=== PATIENT | female | born 1995 | race Caucasian/White ===

== ENCOUNTER 2019-03-05 11:45 | Emergency (ER) | payer SELFPAY ==
[2019-03-05 11:48] VITALS: BP 124/103; PULSE 119; RESP 18; TEMP 37.7; O2SAT 97; BMI 38.9
--- NOTE | 2019-03-05 12:03 | PC.NURSE ---
At bedside to collect flu swab. Patient states that this swab was already collected.
--- NOTE | 2019-03-05 12:04 | ED_ITS ---
Entered by Hellen Sanon, acting as scribe for Mar 05, 2019 11:45 HPI - General Adult General: Chief complaint: General Medical Stated complaint: Headache, n/v Time Seen by Provider: 03/05/19 11:54 Source: patient and family Mode of arrival: ambulatory Limitations: no limitations History of Present Illness: HPI narrative: 23 yo female presents with heada tye, myalgias, arthralgias, cough, n/v, fever. pt states this started yesterday. pt states nothing makes this better or worse, has not tried any OTC meds. pt was recently expose to mother in law that was Dx with flu. pt denies any other symptoms at this time. complaint: headache Onset (ago): day(s) (yesterday) Radiation: non-radiation Severity: moderate Quality: aching Pain Consistency: constant Relieving factors: none Exacerbating factors: other (cough) Associated symptoms: Reports cough, fevers/chills, headache(s), nausea and vomiting; Deny chest pain, confusion, dyspnea or rash Treatments prior to arrival: none Review of Systems Const: Reports: fever, chills, body aches, fatigue and other (headache, cough) Eyes: Denies: blurry vision or eye discharge ENMT: Denies: throat pain, nasal congestion or facial/sinus pain Card: Denies: chest pain or shortness of breath on exertion Resp: Reports: non-productive cough; Denies: shortness of breath or stridor GI: Reports: nausea and vomiting : Denies: painful urination Musc: Denies: neck pain, back pain, extremity pain or extremity swelling Skin/Breast: Denies: rash, redness or sores Neuro: Reports: headache; Denies: confusion or slurred speech Psych: Denies: anxiety or depression Endo: Denies: excessive urination or excessive thirst Jesus/Lymph: Denies: easy bruising, petechiae or enlarged lymph nodes All/Imm: Denies: hives or acute wheezing PFSH ED PFSH: Statuses (acute, chronic, etc) shown below reflect problem list status as previously entered and may not be historically accurate Social History Smoking and tobacco status: current every day smoker smokeless tobacco Physical Exam Const: COMMON NORMALS: no apparent distress, oriented x3, no limitations, healthy appearing, alert and well nourished GENERAL APPEARANCE: cooperative, comfortable, well kempt and well developed ORIENTATION/CONSCIOUSNESS: Yes awake, Yes oriented to person, Yes oriented to place and Yes oriented to time HENMT: COMMON NORMALS: normocephalic, head/scalp atraumatic, hearing grossly normal bilaterally, external ears normal, external nose normal, moist oral mucous membranes and oropharynx normal HEAD & SCALP: normocephalic and atraumatic FACE & SINUS: normal facial exam and face symmetric NOSE: external nose normal EXTERNAL EAR: Yes external ears normal and Yes external ear abnormal Eye: COMMON NORMALS: EOMs intact bilaterally and conjunctivae normal GENERAL EYE: normal appearance of both eyes ALIGNMENT: Yes alignment normal EYELID: eyelids normal CONJUNCTIVA: Yes conjunctivae normal SCLERA: sclerae normal Neck/C-Spine: COMMON NORMALS: full ROM, no lymphadenopathy, supple and no meningeal signs GENERAL: Yes normal visual inspection and Yes trachea midline CERVICAL SPINE: Yes cervical ROM normal, No pain with cervical ROM and No paracervical muscle tenderness Lymph: LYMPHATIC: no lymphadenopathy noted Chest: COMMONS NORMALS: inspection of chest normal CHEST: Yes symmetrical chest wall rise Resp: COMMON NORMALS: normal respiratory effort, no use of accessory muscles and clear to auscultation bilaterally EFFORT & INSPECTION: Yes able to speak in complete sentences, Yes symmetric chest movement and No respiratory distress AUSCULTATION: clear to auscultation bilaterally Cardio: COMMON NORMALS: regular rhythm RATE: tachycardic RHYTHM: regular rhythm PERIPHERAL PULSES: radial pulses present GI: COMMON NORMALS: normal to inspection, nondistended, normoactive bowel sounds, soft to palpation and non-tender PALPATION: Yes soft RECTAL EXAM: deferred : COMMON NORMALS: Yes no CVA tenderness BLADDER/KIDNEY EXAM: Yes no CVA tenderness Back/Pelvis: COMMON NORMALS: no CVA tenderness THORACIC SPINE/UPPER BACK: No pain with ROM LUMBAR SPINE/LOWER BACK: No pain with ROM Extremity: COMMON NORMALS: normal to inspection, full ROM, normal capillary refill and no pedal edema GENERAL: Yes normal exam except as noted Neuro: FERD COMA SCALE: GCS not evaluated COMMON NORMALS: oriented x3, moves all extremities, no focal motor deficits and no sensory deficits noted SENSORIUM/ORIENTATION: Yes alert, Yes oriented to person, Yes oriented to place and Yes oriented to time MENINGEAL SIGNS: Yes no meningeal signs SPEECH: speech normal GAIT: Yes normal gait Psych: COMMON NORMALS: mental status grossly normal, thought process normal, cooperative, affect normal and speech normal APPEARANCE: Yes grossly normal and Yes well kempt ATTITUDE: Yes calm ACTIVITY/MOTOR BEHAVIOR: Yes appropriate eye contact SPEECH: Yes normal speech THOUGHT PROCESS: normal thought process THOUGHT CONTENT: Yes normal thought content ATTENTION/CONCENTRATION: Yes attention grossly intact MEMORY/COGNITION: Yes memory grossly intact and Yes cognition grossly intact INSIGHT: insight good JUDGEMENT: judgment good Skin: COMMON NORMALS: no rashes or lesions noted, skin turgor normal and no petechiae GENERAL SKIN EXAM: no rashes or lesions noted and turgor normal RASHES: no rashes TRAUMA: no lacerations or abrasions HAIR: normal NAILS: normal Course ED course: Although the patient does not appear To feel well, she does not appear toxic. She describesFlulike symptoms and acknowledges exposure to Influenza. Regarding her headache, she does not have any signs of meningismus. She has a low-grade fever here, has not used any svmg-irr-tifqrmw medications for this..I did discuss risks versus benefits of Tamiflu. I did not recommend the medication for her at this time. Patient agrees. We will treat her symptoms today regarding her headache, discharge her home with instructions for flulike symptoms. She has been given strict return precautions. Vital Signs: Vital signs: Vital Signs Temperature 99.9 F H 03/05/19 11:48 Pulse Rate 119 H 03/05/19 11:48 Respiratory Rate 18 03/05/19 11:48 Blood Pressure 124/103 03/05/19 11:48 Pulse Oximetry 97 03/05/19 11:48 MDM - General Adult MDM Narrative: Medical decision making narrative: Differential diagnosis includes influenza, other viral illness, migraine headache, Other headache causes. Meningitis. Discharge Plan Discharge Patient Disposition: Home, Self-Care Clinical Impression: Flu-like symptoms Condition: Stable Discharge Orders: Discharge Order (Routine); Ordered 03/05/19 Ordered By: Tad Mueller Referrals: Fabricio Silvestre MD [Primary Care Provider] - Discharge Diet: Usual diet Discharge Activity: Resume usual activity Patient Instructions: Influenza (ED) Activity Restrictions/Additional Instructions: Your signs and symptoms are most likely caused by a viral illness. Viruses are not treated with antibiotics, but are best treated with rest, pain medications and therapies aimed at relieving symptoms. Viruses can cause sore throat, a runny or congested nose and sinuses, eye redness or irritation, cough, fever, fatigue and weakness. Normally viral illnesses can last from a few days to sometimes 1 to 2 weeks. Staying hydrated will help you feel better and relieve some symptoms. Sore throat can be treated with rnpc-wzk-jnxqlby medications like Tylenol or ibuprofen. Saltwater gargles can also help. Klti-kcb-qyalybt sprays or lozenges may also help relieve symptoms. Obto-hnh-ywwlpfl antihistamines or decongestants may be helpful. Check recommended ages to see if these are safe with children. Medications with Guaifenesin (like Mucinex) can help with relieving chest congestion. You must drink plenty of water with these medications in order for them to be helpful. Nasal sprays like Afrin can be useful for temporary relief of nasal congestion but only use for 2-3 days as directed. Overuse actually makes congestion worse. I actually recommend only using these at night to help [him/her] breathe better and get a good night???s sleep. Nasal washes like the Neti-pot can also help clear nasal congestion. Medicines that contain dextromethorphan can be used to help with cough in teenagers and adults. Xozd-rdi-btizmnk cough and cold medications should not be used in children under 6 years old. Check with pharmacist or with the package recommendations regarding children from 6-12 years old. Bacterial illnesses can sometimes follow a viral illness. So, if your symptoms have gotten better over several days and then suddenly worsen, it may be beneficial to follow-up with your primary care provider or seek medical care if you think your symptoms are worsening. Stand Alone Forms: Work/School Release Coding Level of Care Code ED Scow Derrick Operator for Chg Fwd Exam Problem Focused The documentation recorded by the Fab lou Bridget Annette, accurately reflects the service I personally performed and the decisions made by me, Tad Mueller MD Mar 05, 2019 11:45
[2019-03-05] MEDS: ibuprofen 600 mg Tablet PO (12:21)
[2019-03-05] MEDS: diphenhydrAMINE 50 mg/mL SDV 1mL IM (12:21)
[2019-03-05] MEDS: metoclopramide 5 mg/mL SDV 2 mL 10 MG IM (12:22)
[2019-03-05 12:28] LABS: Influenza A by IFA Negative (Negative); Influenza B by IFA Negative (Negative)
== END 2019-03-05 12:29 | disposition home or self-care (01) ==
PROVIDERS: Emergency Provider Emergency Medicine; PCP Family Medicine
DX: R51 Headache (principal); R11.2 Nausea with vomiting, unspecified; F17.210 Nicotine dependence, cigarettes, uncomplicated
CPT/HCPCS: 87804; 96372; 99281; J1200; J2765

== ENCOUNTER 2019-04-20 00:46 | Emergency (ER) | payer SELFPAY ==
--- NOTE | 2019-04-20 00:50 | W.ED.DENTAL ---
HPI - Dental/Oral General: Chief complaint: Dental/Oral Stated complaint: DENTAL PAIN Time Seen by Provider: 04/20/19 00:50 Source: patient Mode of arrival: ambulatory Limitations: no limitations History of Present Illness: HPI Narrative: Patient is a 24-year-old female who presents to ED today with complaints of left upper dental pain. Patient states she has had cracked teeth to that affected area for the past 3 months that have caused her intermittent pain however over the past few days she states pain has become unbearable. She has not noticed any swelling to her face or jaw. No fevers. She has tried OTC Tylenol, Ibuprofen, Orajel without relief Complaint: tooth pain Teeth map: 1. cracked teeth Onset (ago): month(s) Duration: intermittent Severity: moderate Relieving factors: nothing Associated symptoms: Denies fever(s) or painful swallowing Treatment prior to arrival: topical analgesic and oral analgesic Review of Systems Const: Denies: fever, chills, body aches, change in appetite, change in weight or fatigue Eyes: Denies: change in vision or blurry vision ENMT: Reports: dental pain; Denies: throat pain, enlarged tonsils, painful swallowing, swelling of lips/tongue, oral sores/lesions, ear discharge, nasal congestion or facial/sinus pain Card: Denies: chest pain Resp: Denies: shortness of breath GI: Denies: nausea or vomiting Skin/Breast: Denies: rash Neuro: Denies: headache [facility] ED PFSH: Social History Smoking and tobacco status: current every day smoker smokeless tobacco Physical Exam Const: COMMON NORMALS: no apparent distress, oriented x3, no limitations, alert and well nourished NUTRITIONAL APPEARANCE: obese HENMT: COMMON NORMALS: normocephalic, head/scalp atraumatic, external ears normal, EAC's normal, TM's normal bilaterally and external nose normal HEAD & SCALP: normal to inspection, normocephalic and atraumatic FACE & SINUS: normal facial exam NOSE: external nose normal EXTERNAL EAR: Yes external ears normal EXTERNAL AUDITORY CANAL: EAC's normal TYMPANIC MEMBRANE: TM's normal bilaterally MOUTH: oral and palatal mucosa normal, lip normal, tongue normal and other (cracked L upper teeth; no obvious abscess formation) THROAT: posterior oropharynx normal, tonsils normal and uvula midline Neuro: COMMON NORMALS: oriented x3 SENSORIUM/ORIENTATION: Yes alert Course Vital Signs: Vital signs: Vital Signs Temperature 98 F 04/20/19 00:51 Pulse Rate 90 04/20/19 00:51 Respiratory Rate 18 04/20/19 00:51 Blood Pressure 141/95 04/20/19 00:51 Pulse Oximetry 99 04/20/19 00:51 Discharge Plan Discharge Patient Disposition: Home, Self-Care Clinical Impression: Dental caries Broken teeth Qualifiers: Encounter type: initial encounter Fracture type: closed Qualified Code(s): S02.5XXA - Fracture of tooth (traumatic), initial encounter for closed fracture Condition: Stable Prescriptions: New penicillin V potassium 500 mg tablet 500 mg PO Q8H 7 Days Qty: 21 RF: 0 tramadol 50 mg tablet 50 mg PO TID PRN (Reason: pain) Qty: 14 RF: 0 Discharge Orders: Discharge Order (Routine); Ordered 04/20/19 Ordered By: Clotilde Cisneros Referrals: Fabricio Silvestre MD [Primary Care Provider] - Discharge Diet: Advance as tolerated Patient Instructions: Dental Caries (ED), Toothache (ED) Activity Restrictions/Additional Instructions: You need to follow up with a dentist as soon as possible. Coding Level of Care Code ED Blanking Machine Operator for Sangita Jacobo
[2019-04-20 00:51] VITALS: BP 141/95; PULSE 90; RESP 18; TEMP 36.6; O2SAT 99; BMI 38.9
[2019-04-20] MEDS: TRAMadol 50 mg Tablet PO (01:04)
[2019-04-20] MEDS: ketorolac 60 mg/2 mL INJ IM (01:06)
[2019-04-20 01:31] VITALS: BP 133/87; PULSE 84; RESP 16; O2SAT 100
== END 2019-04-20 01:32 | disposition home or self-care (01) ==
LOC: ER 01:11
PROVIDERS: Emergency Provider Physician Assistant; PCP Family Medicine
DX: K02.9 Dental caries, unspecified (principal); S02.5XXA Fracture of tooth (traumatic), initial encounter for closed fracture; F17.290 Nicotine dependence, other tobacco product, uncomplicated; X58.XXXA Exposure to other specified factors, initial encounter
CPT/HCPCS: 12345; 96372; 99281; 99283; J1885

== ENCOUNTER 2019-06-03 22:13 | Emergency (ER) | payer SELFPAY ==
[2019-06-03 22:21] VITALS: BP 138/91; PULSE 70; RESP 17; TEMP 35.6; O2SAT 99; BMI 38.0
--- NOTE | 2019-06-03 22:37 | ED_ITS ---
Documented by User: Jesus Alberto Felder DO 06/05/19 07:10 HPI - Headache General: Chief Complaint: Headache Stated Complaint: headache Time Seen by Provider: 06/03/19 22:37 History of Present Illness: HPI Narrative: 24-year-old female presents to the emergency room with complaint of headache that began around 3-4 this afternoon she rates the pain at a 7 out of 10 she did not have any aura with his headache she has had migraines on and off for a year and usually gets about 1 every 2 to 3 months it becomes debilitating enough to go to the emergency room. She did take a tramadol at home with no real significant relief. She does not describe this headache as being thunderclap or the worst of her life time. She does state it gives her some nausea and photophobia and has caused a little blurry vision. She has no trauma to the head she is not on any blood thinners at all. She not previously been on any long-term headache prophylaxis medications. Associated symptoms: Deny chest pain, fever(s), malaise, nausea, rash or vomiting Review of Systems Const: Denies: fever, chills, body aches, change in appetite, fatigue or malaise ENMT: Denies: throat pain, ear pain, nasal discharge or nasal congestion Card: Denies: chest pain, edema, shortness of breath on exertion or shortness of breath when lying down Resp: Denies: shortness of breath, productive cough or non-productive cough GI: Denies: abdominal pain, nausea, vomiting, vomiting blood, coffee grounds in vomit, diarrhea, constipation, bloating, blood in stool or black tarry stool : Denies: flank pain, difficulty urinating, painful urination, urinary frequency or urinary urgency Skin/Breast: Denies: rash or itching PFSH ED PFSH: Medical History (Updated 06/03/19 @ 23:30 by Stanley Duke DO) Acute bacterial pharyngitis Depression Migraines Pain, dental Scoliosis Surgical History History of surgical amputation of finger of left hand S/P tonsillectomy Family History Father Diabetes Cancer Grandfather Diabetes Cancer Brother Hypertension Mother Cancer Social History Smoking and tobacco status: current every day smoker cigarettes Packs smoked per day: 0.5 and smokeless tobacco Smokeless tobacco user: chewing tobacco Smokeless tobacco details: very rare Alcohol intake: current Alcohol intake frequency: holidays/special occasions only History of recent travel: No Female Reproductive History: Date of last menstrual period: 01/16/19 Physical Exam Const: COMMON NORMALS: no apparent distress GENERAL APPEARANCE: cooperative and comfortable ORIENTATION/CONSCIOUSNESS: Yes awake, Yes oriented to person, Yes oriented to place and Yes oriented to time HENMT: COMMON NORMALS: normocephalic, head/scalp atraumatic, hearing grossly normal bilaterally, external ears normal, EAC's normal, TM's normal bilaterally, nasal mucous membranes and turbinates normal, moist oral mucous membranes and oropharynx normal HEAD & SCALP: normocephalic and atraumatic NOSE: nasal mucous membranes and turbinates normal EXTERNAL EAR: Yes external ears normal EXTERNAL AUDITORY CANAL: EAC's normal TYMPANIC MEMBRANE: TM's normal bilaterally Eye: COMMON NORMALS: PERRL, EOMs intact bilaterally, conjunctivae normal and no scleral icterus CONJUNCTIVA: Yes conjunctivae normal PUPIL: Yes PERRL Neck/C-Spine: COMMON NORMALS: full ROM, no lymphadenopathy, supple and no JVD Lymph: LYMPHATIC: no lymphadenopathy noted and no lymphedema noted Resp: COMMON NORMALS: normal respiratory effort, no retractions, no use of accessory muscles and clear to auscultation bilaterally AUSCULTATION: clear to auscultation bilaterally Cardio: COMMON NORMALS: no JVD, regular rate, regular rhythm and no murmurs RATE: regular rate RHYTHM: regular rhythm GI: COMMON NORMALS: soft to palpation and no hepatosplenomegaly AUSCULTATION: Yes normoactive bowel sounds PALPATION: Yes soft, No tender, No guarding and Yes no hepatosplenomegaly Extremity: COMMON NORMALS: normal to inspection, normal capillary refill, no clubbing, cyanosis or edema, no calf tenderness and no pedal edema Neuro: SENSORIUM/ORIENTATION: Yes oriented to person, Yes oriented to place and Yes oriented to time Skin: COMMON NORMALS: no rashes or lesions noted GENERAL SKIN EXAM: no rashes or lesions noted Course Vital Signs: Vital signs: Vital Signs Temperature 96.0 F L 06/03/19 22:21 Pulse Rate 77 06/04/19 00:44 Respiratory Rate 18 06/04/19 00:44 Blood Pressure 123/72 06/04/19 00:44 Pulse Oximetry 98 06/04/19 00:44 MDM - Headache MDM Narrative: Medical decision making narrative: Patient initially seen by myself and started on medications for relief of migraine. Care turned over to Dr. Duke at end of my shift. Lab Data: Labs: Lab Results 06/03/19 06/03/19 Range/Units 22:53 22:53 WBC 10.3 H (4.0-10.0) 10^3/ uL RBC 5.43 H (4.1-5.3) 10^6/u L Hgb 16.2 H (11.5-15.3) g/dL Hct 48.7 H (37.0-47.0) % MCV 89.7 (81-99) fL MCH 29.8 (28.0-34.0) pg MCHC 33.3 (30.0-36.0) g/dL RDW 13.2 (12.1-15.1) % Plt Count 343 (130-400) 10^3/c mm MPV 9.9 (7.4-10.4) fL Neut % (Auto) 51.4 % Lymph % (Auto) 35.9 % Plumas % (Auto) 7.9 % Eos % (Auto) 3.6 % Baso % (Auto) 1.1 % Neut # (Auto) 5.3 (1.8-7.7) 10^3/u L Lymph # (Auto) 3.7 (0.8-4.8) 10^3/u L [place] # (Auto) 0.8 (0.2-0.9) 10^3/u L Eos # (Auto) 0.4 (0.0-0.8) 10^3/u L Baso # (Auto) 0.1 (0.0-0.1) 10^3/u L Nucleated RBC % (a uto) 0 % Nucleated RBCs # 0.0 /100WBC Sodium 140 (136-145) mmol/L Potassium 4.1 (3.5-5.1) mmol/L Chloride 101 (98-107) mmol/L Carbon Dioxide 27 (22-29) mmol/L Anion Gap 16.1 (5-19) BUN 7 (6-20) mg/dL Creatinine 0.7 (0.5-0.9) mg/dL GFR Calculation 104.6 (90-130) mL/min Glucose 102 (65-115) mg/dL Calculated Osmolal ity 286 (285-295) mOsm/k g Calcium 10.1 (8.5-10.5) mg/dL Discharge Plan Discharge Patient Disposition: Home, Self-Care Clinical Impression: Headache Qualifiers: Headache type: unspecified Headache chronicity pattern: acute headache Intractability: not intractable Qualified Code(s): R51 - Headache Condition: Stable Prescriptions: No Action ibuprofen 800 mg tablet 800 mg PO Q8H PRN (Reason: dental pain) Qty: 90 RF: 0 HYDROCODONE capsule PO RF: 0 Adult Probiotic 3 billion cell capsule 3,000 mmu cells PO DAILY Qty: 24 RF: 0 Discharge Orders: Discharge Order (Routine); Ordered 06/03/19 Ordered By: Stanley Duke Referrals: Tammie Montana FNP [Primary Care Provider] - 4-7 days Discharge Diet: Advance as tolerated Discharge Activity: Increase activity as tolerated Patient Instructions: Acute Headache (ED) Activity Restrictions/Additional Instructions: Return for fever greater than 100, mental status changes, weakness, vomiting liquids or medications, other concerning symptoms. Stand Alone Forms: Work/School Release Discharge Date/Time: 06/04/19 00:46 Coding Level of Care Code ED D[employer] Worker for Chg Fwd Exam Comprehensive Documented by User: Stanley Duke DO 06/04/19 03:50 HPI - Headache General: Chief Complaint: Headache Stated Complaint: headache Time Seen by Provider: 06/03/19 22:37 PFSH ED PFSH: Medical History (Updated 06/03/19 @ 23:30 by Stanley Duke DO) Acute bacterial pharyngitis Depression Migraines Pain, dental Scoliosis Surgical History History of surgical amputation of finger of left hand S/P tonsillectomy Family History Father Diabetes Cancer Grandfather Diabetes Cancer Brother Hypertension Mother Cancer Social History Smoking and tobacco status: current every day smoker cigarettes Packs smoked per day: 0.5 and smokeless tobacco Smokeless tobacco user: chewing tobacco Smokeless tobacco details: very rare Alcohol intake: current Alcohol intake frequency: holidays/special occasions only History of recent travel: No Course Vital Signs: Vital signs: Vital Signs Temperature 96.0 F L 06/03/19 22:21 Pulse Rate 77 06/04/19 00:44 Respiratory Rate 18 06/04/19 00:44 Blood Pressure 123/72 06/04/19 00:44 Pulse Oximetry 98 06/04/19 00:44 MDM - Headache MDM Narrative: Medical decision making narrative: 24-year-old female, with decently frequent migraine type headaches that landed her in the emergency department. She was originally seen by Dr. Reno. Her headache is improved after a migraine cocktail. She is having some pain. A dose of fentanyl was ordered. She has no focal neurologic deficits. Her headache is similar to previous headaches. she will be allowed discharge Lab Data: Labs: Lab Results 06/03/19 06/03/19 Range/Units 22:53 22:53 WBC 10.3 H (4.0-10.0) 10^3/ uL RBC 5.43 H (4.1-5.3) 10^6/u L Hgb 16.2 H (11.5-15.3) g/dL Hct 48.7 H (37.0-47.0) % MCV 89.7 (81-99) fL MCH 29.8 (28.0-34.0) pg MCHC 33.3 (30.0-36.0) g/dL RDW 13.2 (12.1-15.1) % Plt Count 343 (130-400) 10^3/c mm MPV 9.9 (7.4-10.4) fL Neut % (Auto) 51.4 % Lymph % (Auto) 35.9 % [place] % (Auto) 7.9 % Eos % (Auto) 3.6 % Baso % (Auto) 1.1 % Neut # (Auto) 5.3 (1.8-7.7) 10^3/u L Lymph # (Auto) 3.7 (0.8-4.8) 10^3/u L [place] # (Auto) 0.8 (0.2-0.9) 10^3/u L Eos # (Auto) 0.4 (0.0-0.8) 10^3/u L Baso # (Auto) 0.1 (0.0-0.1) 10^3/u L Nucleated RBC % (a uto) 0 % Nucleated RBCs # 0.0 /100WBC Sodium 140 (136-145) mmol/L Potassium 4.1 (3.5-5.1) mmol/L Chloride 101 (98-107) mmol/L Carbon Dioxide 27 (22-29) mmol/L Anion Gap 16.1 (5-19) BUN 7 (6-20) mg/dL Creatinine 0.7 (0.5-0.9) mg/dL GFR Calculation 104.6 (90-130) mL/min Glucose 102 (65-115) mg/dL Calculated Osmolal ity 286 (285-295) mOsm/k g Calcium 10.1 (8.5-10.5) mg/dL Discharge Plan Discharge Patient Disposition: Home, Self-Care Clinical Impression: Headache Qualifiers: Headache type: unspecified Headache chronicity pattern: acute headache Intractability: not intractable Qualified Code(s): R51 - Headache Condition: Stable Prescriptions: No Action ibuprofen 800 mg tablet 800 mg PO Q8H PRN (Reason: dental pain) Qty: 90 RF: 0 HYDROCODONE capsule PO RF: 0 Adult Probiotic 3 billion cell capsule 3,000 mmu cells PO DAILY Qty: 24 RF: 0 Discharge Orders: Discharge Order (Routine); Ordered 06/03/19 Ordered By: Stanley Duke Referrals: Tammie Montana FNP [Primary Care Provider] - 4-7 days Discharge Diet: Advance as tolerated Discharge Activity: Increase activity as tolerated Patient Instructions: Acute Headache (ED) Activity Restrictions/Additional Instructions: Return for fever greater than 100, mental status changes, weakness, vomiting liquids or medications, other concerning symptoms. Stand Alone Forms: Work/School Release Discharge Date/Time: 06/04/19 00:46 Coding Level of Care Code ED D[employer] Worker for Chg Fwd Exam Comprehensive
[2019-06-03 22:59] VITALS: BP 123/88; PULSE 80; RESP 16; O2SAT 98
[2019-06-03 22:59] LABS: Basophils # 0.1 10^3/uL (0.0-0.1); Basophils % 1.1 %; Eosinophils # 0.4 10^3/uL (0.0-0.8); Eosinophils % 3.6 %; Hematocrit 48.7 % (37.0-47.0); Hemoglobin 16.2 g/dL (11.5-15.3); Lymphocytes # 3.7 10^3/uL (0.8-4.8); Lymphocytes % 35.9 %; Mean Corpuscular HGB Conc 33.3 g/dL (30.0-36.0); Mean Corpuscular Hemoglobin 29.8 pg (28.0-34.0); Mean Corpuscular Volume 89.7 fL (81-99); Mean Platelet Volume 9.9 fL (7.4-10.4); Monocytes # 0.8 10^3/uL (0.2-0.9); Monocytes % 7.9 %; Neutrophils # 5.3 10^3/uL (1.8-7.7); Neutrophils % 51.4 %; Nucleated Red Blood Cells % 0 %; Platelet Count 343 10^3/cmm (130-400); Red Blood Count 5.43 10^6/uL (4.1-5.3); Red Cell Distribution Width 13.2 % (12.1-15.1); White Blood Count 10.3 10^3/uL (4.0-10.0)
[2019-06-03 23:18] LABS: Anion Gap 16.1 (5-19); Blood Urea Nitrogen 7 mg/dL (6-20); Calcium 10.1 mg/dL (8.5-10.5); Carbon Dioxide 27 mmol/L (22-29); Chloride 101 mmol/L (98-107); Glomerular Filtration Rate 104.6 mL/min (90-130); Glucose 102 mg/dL (65-115); Osmolality Calculated 286 mOsm/kg (285-295); Potassium 4.1 mmol/L (3.5-5.1); Sodium 140 mmol/L (136-145)
[2019-06-03] MEDS: ketorolac 30 mg/mL INJ IVP (23:22)
[2019-06-03] MEDS: metoclopramide 5 mg/mL SDV 2 mL 10 MG IVP (23:23)
[2019-06-03] MEDS: sodium chlor 0.9% + KCl 20 mEq 20 MEQ/1,000 ML BAG 125 MEQ IV (23:26)
[2019-06-03] MEDS: valproic acid inj 500 MG in sodium chloride 0.9% 50 ML 55 MG IV (23:28)
[2019-06-03 23:35] VITALS: BP 123/88; PULSE 62; RESP 16; O2SAT 97
[2019-06-04 00:09] VITALS: BP 124/76; PULSE 81; RESP 16; O2SAT 99
[2019-06-04 00:44] VITALS: BP 123/72; PULSE 77; RESP 18; O2SAT 98
== END 2019-06-04 00:46 | disposition home or self-care (01) ==
PROVIDERS: Family Medicine; Emergency Provider Emergency Medicine; PCP Nurse Practitioner
DX: R51 Headache (principal); F17.210 Nicotine dependence, cigarettes, uncomplicated
CPT/HCPCS: 12345; 80048; 85025; 96365; 96375; 99283; 99284; J1885; J2765

== ENCOUNTER → 2019-06-18 16:59 | Outpatient (BNVA) | payer SELFPAY | PROVIDERS: PCP Nurse Practitioner; Visit Provider Nurse Practitioner Family | DX: J02.9 Acute pharyngitis, unspecified (principal); J06.9 Acute upper respiratory infection, unspecified | CPT/HCPCS: 87071; 87880 ==

== ENCOUNTER 2019-10-06 00:05 | Emergency (ER) | payer SELFPAY ==
[2019-10-06 00:09] VITALS: BP 129/89; PULSE 87; RESP 18; TEMP 35.7; O2SAT 99; BMI 37.2
--- NOTE | 2019-10-06 00:21 | ED_ITS ---
HPI - Headache General: Chief Complaint: Headache Stated Complaint: migrane Time Seen by Provider: 10/06/19 00:14 History of Present Illness: HPI Narrative: Patient is a 24-year-old female comes to the ED with a migraine. Patient has a past medical history of migraines. Patient says she started having a headache earlier today that has since progressed into a migraine. She has photophobia and nausea at home with the headache. She describes the pain as aching and is located retro-orbital on both right and left eyes. He currently rates the migraine a 5 out of 10. She states that this migraine is similar to past migraines. She denies any vision changes or aura. She is taken Tylenol today and it has not provided any relief. Patient says she is currently on her period. Associated symptoms: Reports nausea and photophobia; Deny chest pain, fever(s), rash or vomiting Review of Systems Const: Denies: fever(s), chills or fatigue Eyes: Reports: photophobia; Denies: change in vision or eye discomfort ENMT: Denies: throat pain, odynophagia, nasal discharge or nasal congestion Card: Denies: chest pain, palpitations, edema, swelling of feet/ankles, dyspnea on exertion or orthopnea Resp: Denies: dyspnea, productive cough or non-productive cough GI: Reports: nausea; Denies: abdominal pain, vomiting, diarrhea, constipation or hematochezia : Denies: flank pain, dysuria or hematuria Musc: Denies: neck pain, back pain or extremity swelling Skin/Breast: Denies: rash or new lesions Neuro: Reports: headache(s); Denies: numbness in extremities or weakness in extremities PFS ED PFSH: Medical History Acute bacterial pharyngitis Depression Migraines Pain, dental Scoliosis Surgical History History of surgical amputation of finger of left hand S/P tonsillectomy Family History Father Diabetes Cancer Grandfather Diabetes Cancer Brother Hypertension Mother Cancer Social History Smoking and tobacco status: current every day smoker cigarettes Packs smoked per day: 0.5 and smokeless tobacco Smokeless tobacco user: chewing tobacco Smokeless tobacco details: very rare Alcohol intake: current Alcohol intake frequency: holidays/special occasions only History of recent travel: No Female Reproductive History: Date of last menstrual period: 09/16/19 Physical Exam Const: COMMON NORMALS: no acute distress, patient oriented x3, healthy appearing and alert GENERAL APPEARANCE: cooperative and comfortable HENMT: COMMON NORMALS: normocephalic HEAD & SCALP: normocephalic MOUTH: Normal oral and palatal mucosa present THROAT: posterior oropharynx normal and uvula midline Eye: COMMON NORMALS: Equal, round and reactive pupils present, EOMs intact bilaterally, conjunctivae normal and normal visual castillo by confrontation CONJUNCTIVA: Yes conjunctivae normal PUPIL: Yes Equal, round and reactive pupils present DIRECT OPHTHALMOSCOPY: Yes photophobia Neck/C-Spine: COMMON NORMALS: supple GENERAL: Yes normal visual inspection Resp: COMMON NORMALS: normal respiratory effort, No retractions, No use of accessory muscles and clear to auscultation bilaterally AUSCULTATION: clear to auscultation bilaterally Cardio: COMMON NORMALS: regular rate, regular rhythm, S1 normal heart sound present, S2 normal heart sound present, No gallops present (Cardio), No clicks present (Cardio), No murmurs present (Cardio) and Peripheral pulses 2+ throughout RATE: regular rate RHYTHM: regular rhythm HEART SOUNDS: S1 normal heart sound present and S2 normal heart sound present PERIPHERAL PULSES: Peripheral pulses 2+ throughout GI: COMMON NORMALS: Normal to inspection, nondistended, normoactive bowel sounds present, Soft to palpation, non-tender and no masses PALPATION: Yes Soft to palpation : COMMON NORMALS: Yes no CVA tenderness BLADDER/KIDNEY EXAM: Yes no CVA tenderness Back/Pelvis: COMMON NORMALS: no CVA tenderness Extremity: COMMON NORMALS: normal to inspection and no pedal edema Neuro: COMMON NORMALS: patient oriented x3, CN's II-XII intact bilaterally, moves all extremities, no focal motor deficits and no sensory deficits noted SENSORIUM/ORIENTATION: Yes alert COORDINATION/BALANCE: [id number] test normal GAIT: Yes Normal gait present SENSORY EXAM: Yes extremities (intact) MOTOR EXAM: 5/5 motor strength present throughout COORDINATION: [id number] test normal Skin: COMMON NORMALS: no rashes or lesions noted GENERAL SKIN EXAM: no rashes or lesions noted and dry skin Course Reevaluation(s): Reevaluation #1: After getting migraine medications patient says her migraine has improved greatly and she is ready to go home and rest. Time: 01:00 Vital Signs: Vital signs: Vital Signs Temperature 96.2 F L 10/06/19 00:09 Pulse Rate 78 10/06/19 00:43 Respiratory Rate 18 10/06/19 00:43 Blood Pressure 114/66 10/06/19 00:43 Pulse Oximetry 99 10/06/19 00:43 MDM - Headache MDM Narrative: Medical decision making narrative: Patient is a 24-year-old female comes to the ED with a migraine. She has a past medical history of migraines. She is experiencing nausea retro-orbital head pain and photophobia. Neuro exam was normal. Patient was given migraine treatment cocktail of IV fluids, Reglan, Toradol, Decadron and her migraine improved. Patient was discharged and told to follow-up with PCP in 7 to 10 days for reevaluation. Ret urn to ED precautions given. Patient understood and agreed with plan. Discharge Plan Discharge Patient Disposition: Home Clinical Impression: Migraines Qualifiers: Migraine type: without aura Status migrainosus presence: without status migrainosus Intractability: not intractable Qualified Code(s): G43.009 - Migraine without aura, not intractable, without status migrainosus Condition: Stable Prescriptions: No Action azithromycin 250 mg tablet See Rx Instructions PO .COMPLEX 5 Days Qty: 6 RF: 0 prednisone 20 mg tablet 40 mg PO DAILY 5 Days Qty: 10 RF: 0 Discharge Orders: Discharge Order (Routine); Ordered 10/06/19 Ordered By: Kenrick Davalos Discharge Diet: Regular Discharge Activity: Resume usual activity Patient Instructions: Migraine Headache (ED) Activity Restrictions/Additional Instructions: Follow-up with medical provider as directed in 7-10 days. Take [id number] ibuprofen or Tylenol for any reoccurring headaches. Return to the ER or your medical provider if condition worsens. Please read and understand discharge instructions. If any questions, please ask. 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
[2019-10-06] MEDS: ketorolac 30 mg/mL INJ IVP (00:26)
[2019-10-06] MEDS: metoclopramide 5 mg/mL SDV 2 mL 10 MG IVP (00:29)
[2019-10-06] MEDS: dexamethasone 10 mg/mL INJ IVP (00:33)
[2019-10-06] MEDS: sodium chloride 0.9% 500 ML IV (00:35)
[2019-10-06 00:43] VITALS: BP 114/66; PULSE 78; RESP 18; O2SAT 99
== END 2019-10-06 01:13 | disposition home or self-care (01) ==
PROVIDERS: Emergency Provider Physician Assistant
DX: G43.009 Migraine without aura, not intractable, without status migrainosus (principal); F17.210 Nicotine dependence, cigarettes, uncomplicated
CPT/HCPCS: 12345; 96361; 96374; 96375; 99283; J1100; J1885; J2765; J7040

== ENCOUNTER 2019-10-15 19:20 | Emergency (ER) | payer SELFPAY ==
[2019-10-15 19:25] VITALS: BP 127/94; PULSE 90; RESP 17; TEMP 36.4; O2SAT 98; BMI 38.0
--- NOTE | 2019-10-15 19:50 | ED_ITS ---
HPI - Dental/Oral General: Chief complaint: Dental/Oral Stated complaint: possible tooth infection Time Seen by Provider: 10/15/19 19:49 Source: patient Mode of arrival: ambulatory Limitations: no limitations History of Present Illness: HPI Narrative: Patient is a 24-year-old female who presents to ED today with a complaint of right lower dental pain that she has had over the past several days. Patient tells me she has tried to get into a dentist but does not have insurance. She has noticed some mild facial swelling. She has no trouble swallowing. No fevers. MD Complaint: tooth pain Teeth map: 1. previous filling; no swelling noted; no abscess Onset (ago): day(s) Duration: constant Severity: moderate Relieving factors: nothing Context: history of dental caries and poor dental care Associated symptoms: Reports no associated symptoms; Denies ear or mastoid pain, fever(s) or odynophagia Review of Systems Const: Denies: fever(s) or chills Eyes: Denies: change in vision, blurry vision, photophobia, floaters or seeing flashes ENMT: Reports: dental pain; Denies: throat pain, uvular edema, enlarged tonsils, odynophagia, hoarseness, swelling of lips/tongue, oral sores, bleeding gums, ear or mastoid pain, ear discharge, change in hearing, nasal congestion, epistaxis or post nasal drip GI: Denies: nausea or vomiting Musc: Denies: neck pain Skin/Breast: Denies: rash Neuro: Denies: headache(s) [facility] ED PFSH: Medical History (Updated 10/15/19 @ 20:15 by GIOVANI Wolfe) Acute bacterial pharyngitis Depression Migraines Pain, dental Scoliosis Surgical History History of surgical amputation of finger of left hand S/P tonsillectomy Family History Father Diabetes Cancer Grandfather Diabetes Cancer Brother Hypertension Mother Cancer Social History Smoking and tobacco status: current every day smoker cigarettes Packs smoked per day: 0.5 and smokeless tobacco Smokeless tobacco user: chewing tobacco Smokeless tobacco details: very rare Alcohol intake: current Alcohol intake frequency: holidays/special occasions only History of recent travel: No Female Reproductive History: Date of last menstrual period: 09/16/19 Physical Exam Const: COMMON NORMALS: no acute distress, patient oriented x3, no limitations and alert HENMT: COMMON NORMALS: normocephalic, atraumatic, hearing grossly normal bilaterally, external ears normal, EAC's normal, TM's normal bilaterally, Normal external nose present, Normal nasal mucous membranes and turbinates present, moist oral mucous membranes, oropharynx normal and gingiva normal HEAD & SCALP: normal to inspection, normocephalic and atraumatic FACE & SINUS: normal facial exam and sinuses nontender NOSE: Normal external nose present and Normal nasal mucous membranes and turbinates present EXTERNAL EAR: Yes external ears normal, Yes mastoids normal and Yes no periauricular adenopathy EXTERNAL AUDITORY CANAL: EAC's normal TYMPANIC MEMBRANE: TM's normal bilaterally MOUTH: Normal oral and palatal mucosa present, lip normal and tongue normal TEETH & GINGIVA: Yes poor dentition and Yes other (pain to R molar; no swelling/abscess noted) THROAT: posterior oropharynx normal, tonsils normal and uvula midline; no uvular edema Neuro: COMMON NORMALS: patient oriented x3 SENSORIUM/ORIENTATION: Yes alert Procedures Nerve Block Nerve Block 1: Time out performed: No Local Anesthetic: lidocaine 1%, bupivacaine 0.5% and with epi Amount of anesthesia used (mL): 2.0 Side: right Intraoral Nerve Block: inferior alveolar Procedure Successful: Yes Patient Tolerated Procedure: well Complications: none Course Vital Signs: Vital signs: Vital Signs Temperature 97.6 F 10/15/19 19:25 Pulse Rate 90 10/15/19 19:25 Respiratory Rate 17 10/15/19 19:25 Blood Pressure 127/94 10/15/19 19:25 Pulse Oximetry 98 10/15/19 19:25 MDM - Dental/Oral MDM Narrative: Medical decision making narrative: pt with relief after dental block; gave dental resources and spoke to her about [facility] for follow[facility] Discharge Plan Discharge Patient Disposition: Home Clinical Impression: Pain, dental Condition: Stable Prescriptions: New penicillin V potassium 500 mg tablet 500 mg PO Q8H 7 Days Qty: 21 RF: 0 tramadol 50 mg tablet 50 mg PO Q6H PRN (Reason: pain) Qty: 10 RF: 0 No Action azithromycin 250 mg tablet See Rx Instructions PO .COMPLEX 5 Days Qty: 6 RF: 0 prednisone 20 mg tablet 40 mg PO DAILY 5 Days Qty: 10 RF: 0 Discharge Orders: Discharge Order (Routine); Ordered 10/15/19 Ordered By: Clotilde Cisneros Patient Instructions: Lidocaine/Epinephrine (Injection), Dental Caries (ED), Toothache (ED) Activity Restrictions/Additional Instructions: Please follow up with a dentist as soon as possible. 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
[2019-10-15 21:03] VITALS: BP 138/98; PULSE 70; RESP 14; O2SAT 98
== END 2019-10-15 21:04 | disposition home or self-care (01) ==
PROVIDERS: Emergency Provider Physician Assistant
DX: K08.89 Other specified disorders of teeth and supporting structures (principal); F17.210 Nicotine dependence, cigarettes, uncomplicated
CPT/HCPCS: 12345; 99281

== ENCOUNTER 2019-11-13 01:09 | Emergency (ER) | payer OTHER, SELFPAY ==
[2019-11-13 01:20] VITALS: BP 144/103; PULSE 73; RESP 18; TEMP 36.5; O2SAT 98; BMI 38.0
--- NOTE | 2019-11-13 01:23 | ED_ITS ---
HPI - Dental/Oral General: Chief complaint: Dental/Oral Stated complaint: oral pain Time Seen by Provider: 11/13/19 01:23 History of Present Illness: HPI Narrative: Patient is a 24-year-old female comes to the ED with dental pain. Patient has been dealing with this dental pain for the past 2 months. She had an appointment set up with a dentist, but it got delayed due to COVID-19. He does have another appointment with dentist set up in the next 2 weeks. Dental pain is on right lower side of jaw. She currently rates the pain a 6 out of 10. Associated symptoms: Denies fever(s) or odynophagia Review of Systems Const: Denies: fever(s), chills or fatigue Eyes: Denies: change in vision or eye discomfort ENMT: Reports: dental pain; Denies: throat pain, odynophagia, nasal discharge or nasal congestion Card: Denies: chest pain, palpitations, edema, swelling of feet/ankles, dyspnea on exertion or orthopnea Resp: Denies: dyspnea, productive cough or non-productive cough GI: Denies: abdominal pain, nausea, vomiting, diarrhea, constipation or hematochezia : Denies: flank pain, dysuria or hematuria Musc: Denies: neck pain, back pain or extremity swelling Skin/Breast: Denies: rash or new lesions Neuro: Denies: headache(s), numbness in extremities or weakness in extremities PFSH ED PFSH: Medical History Acute bacterial pharyngitis Depression Migraines Pain, dental Scoliosis Surgical History History of surgical amputation of finger of left hand S/P tonsillectomy Family History Father Diabetes Cancer Grandfather Diabetes Cancer Brother Hypertension Mother Cancer Social History Smoking and tobacco status: current every day smoker cigarettes Packs smoked per day: 0.5 and smokeless tobacco Smokeless tobacco user: chewing tobacco Smokeless tobacco details: very rare Alcohol intake: current Alcohol intake frequency: holidays/special occasions only History of recent travel: No Female Reproductive History: Date of last menstrual period: 09/16/19 Physical Exam Const: COMMON NORMALS: no acute distress, patient oriented x3, healthy appearing and alert GENERAL APPEARANCE: cooperative and comfortable HENMT: COMMON NORMALS: normocephalic HEAD & SCALP: normocephalic MOUTH: Normal oral and palatal mucosa present TEETH & GINGIVA: Yes caries and Yes gingiva abnormal edematous and diffusely erythematous THROAT: posterior oropharynx normal and uvula midline Neck/C-Spine: COMMON NORMALS: supple GENERAL: Yes normal visual inspection Resp: COMMON NORMALS: normal respiratory effort, No retractions, No use of accessory muscles and clear to auscultation bilaterally AUSCULTATION: clear to auscultation bilaterally Cardio: COMMON NORMALS: regular rate, regular rhythm, S1 normal heart sound present, S2 normal heart sound present, No gallops present (Cardio), No clicks present (Cardio), No murmurs present (Cardio) and Peripheral pulses 2+ throughout RATE: regular rate RHYTHM: regular rhythm HEART SOUNDS: S1 normal heart sound present and S2 normal heart sound present PERIPHERAL PULSES: Peripheral pulses 2+ throughout GI: COMMON NORMALS: Normal to inspection, nondistended, normoactive bowel sounds present, Soft to palpation, non-tender and no masses PALPATION: Yes Soft to palpation : COMMON NORMALS: Yes no CVA tenderness BLADDER/KIDNEY EXAM: Yes no CVA tenderness Back/Pelvis: COMMON NORMALS: no CVA tenderness Neuro: COMMON NORMALS: patient oriented x3 and moves all extremities SENSORIUM/ORIENTATION: Yes alert Course Vital Signs: Vital signs: Vital Signs Temperature 97.7 F 11/13/19 01:20 Pulse Rate 87 11/13/19 01:51 Respiratory Rate 16 11/13/19 01:51 Blood Pressure 132/76 11/13/19 01:51 Pulse Oximetry 98 11/13/19 01:51 MDM - Dental/Oral MDM Narrative: Medical decision making narrative: Patient is a 24-year-old female comes to the ED with dental pain. Patient has an appointment with dentist in the next 2 weeks to get her tooth pulled. Patient was put on a prescription of clindamycin. Discharge Plan Discharge Patient Disposition: Home Clinical Impression: Pain, dental Condition: Stable Prescriptions: New clindamycin HCl 150 mg capsule 300 mg PO QID 7 Days Qty: 56 RF: 0 No Action azithromycin 250 mg tablet See Rx Instructions PO .COMPLEX 5 Days Qty: 6 RF: 0 prednisone 20 mg tablet 40 mg PO DAILY 5 Days Qty: 10 RF: 0 tramadol 50 mg tablet 50 mg PO Q6H PRN (Reason: pain) Qty: 10 RF: 0 Discharge Orders: Discharge Order (Routine); Ordered 11/13/19 Ordered By: Kenrick Davalos Discharge Diet: Regular Discharge Activity: Resume usual activity Activity Restrictions/Additional Instructions: Follow-up with dentist as directed. Take medications as prescribed. Take [id number] Tylenol or ibuprofen for pain. Return to the ER or your fl dical provider if condition worsens. Please read and understand discharge instructions. If any questions, please ask. Discharge Date/Time: 11/13/19 01:52 Coding Level of Care Code ED Program Manufacturing Leader for Sangita Jacobo Exam Comprehensive
[2019-11-13] MEDS: clindamycin 150 mg Capsule 300 MG PO (01:50)
[2019-11-13] MEDS: HYDROcodone-acetaminophen 7.5-325 mg Tablet 1 TAB PO (01:50)
[2019-11-13 01:51] VITALS: BP 132/76; PULSE 87; RESP 16; O2SAT 98
== END 2019-11-13 01:52 | disposition home or self-care (01) ==
PROVIDERS: Emergency Provider Physician Assistant
DX: K08.89 Other specified disorders of teeth and supporting structures (principal); F17.210 Nicotine dependence, cigarettes, uncomplicated; U07.1 COVID-19
CPT/HCPCS: 12345; 87635; 99281; 99283

== ENCOUNTER 2020-02-11 13:53 | Emergency (ER) | payer SELFPAY ==
[2020-02-11 14:06] VITALS: BP 144/90; PULSE 94; RESP 18; TEMP 36; O2SAT 98; BMI 38.0
--- NOTE | 2020-02-11 14:15 | W.ED.FEMALGU ---
HPI - Female Genitourinary General: Chief complaint: Vaginal Bleeding Stated complaint: VAGINAL BLEEDING, AB/BACK PAIN Time Seen by Provider: 02/11/20 13:54 Source: patient Mode of arrival: ambulatory Limitations: no limitations History of Present Illness: HPI Narrative: 24-year-old female patient presents to the emergency department with onset of menstrual cycle x2-1/2 months. She reports cycle will lighten then will become heavy again. She reports passage of clots yesterday. Previous menstrual cycle September 2019, reports menstrual cycle lasted 6 weeks at that time. Reports her INTERVENTIONAL TECHNOLOGIST prescribed medication and stopped her cycle. Medication was effective but then started her menstrual cycle again 1 to 2 weeks later. States onset of low back pain with cramping. Has not taken anything for pain. She denies symptoms such as dizziness, lightheadedness or feeling faint. Reports wearing a pad, changing pad every 1-2 hours. MD elicited complaint: other (Irregular menstrual cycles, menorrhagia) Onset (ago): month(s) (2.5) Location of symptoms: pelvis and low back Severity: mild Severity scale (1-10): 5 Quality of pain: cramping, dull and aching Consistency: constant Vaginal discharge: none Vaginal bleeding: moderate, dark red, clots and # pads per hour (1) Exacerbating factors: none Relieving factors: none Associated symptoms: Reports no associated symptoms; Deny abdominal pain, headache(s) or nausea Treatment prior to arrival: none Sexual activity: Yes Patient : No Date of Last Menstrual Period: 09/16/19 Review of Systems General: Reports: 10 or more systems reviewed and unremarkable except in HPI and below Const: Denies: fever(s), chills, body aches, fatigue, malaise or diaphoresis Eyes: Denies: blurry vision or eye redness ENMT: Denies: throat pain, dental pain or disequilibrium Card: Denies: chest pain, palpitations or irregular heart rhythm Resp: Denies: dyspnea, productive cough, non-productive cough or wheezing GI: Denies: abdominal pain, nausea, vomiting, hematemesis, early satiety, diarrhea or constipation : Reports: vaginal bleeding, dysmenorrhea, irregular period, metrorrhagia, change in menstrual flow and pelvic pain; Denies: difficulty voiding or dysuria Musc: Reports: back pain; Denies: neck pain, extremity swelling, joint pain, joint stiffness, muscle cramps or muscle weakness Skin/Breast: Denies: rash, pruritus, erythema or skin tenderness Neuro: Denies: headache(s), weakness in extremities, lack of coordination, difficulty walking, frequent falls, dizziness, confusion or behavioral changes Psych: Denies: anxiety or depression Jesus/Lymph: Denies: easy bruising PFSH ED PFSH: Medical History (Updated 02/11/20 @ 14:26 by MELISSA Skelton) Acute bacterial pharyngitis Depression Migraines Pain, dental Scoliosis Surgical History History of surgical amputation of finger of left hand S/P tonsillectomy Family History Father Diabetes Cancer Grandfather Diabetes Cancer Brother Hypertension Mother Cancer Social History Smoking and tobacco status: current every day smoker cigarettes Packs smoked per day: 0.5 and smokeless tobacco Smokeless tobacco user: chewing tobacco Smokeless tobacco details: very rare Alcohol intake: current Alcohol intake frequency: holidays/special occasions only History of recent travel: No Female Reproductive History: Date of last menstrual period: 09/16/19 Physical Exam Const: COMMON NORMALS: no acute distress, patient oriented x3, healthy appearing and alert GENERAL APPEARANCE: cooperative, comfortable and well hydrated HENMT: COMMON NORMALS: normocephalic, Normal external nose present and moist oral mucous membranes HEAD & SCALP: normocephalic NOSE: Normal external nose present Eye: COMMON NORMALS: Equal, round and reactive pupils present and EOMs intact bilaterally GENERAL EYE: appearance normal, both eyes and all related structures PUPIL: Yes Equal, round and reactive pupils present Neck/C-Spine: COMMON NORMALS: full ROM and no lymphadenopathy GENERAL: Yes normal visual inspection and Yes trachea midline CERVICAL SPINE: Yes cervical ROM normal Lymph: LYMPHATIC: no lymphadenopathy noted Chest: COMMONS NORMALS: normal inspection of the chest Resp: COMMON NORMALS: normal respiratory effort and clear to auscultation bilaterally AUSCULTATION: clear to auscultation bilaterally Cardio: COMMON NORMALS: regular rhythm, S1 normal heart sound present, S2 normal heart sound present and Peripheral pulses 2+ throughout RHYTHM: regular rhythm HEART SOUNDS: S1 normal heart sound present and S2 normal heart sound present PERIPHERAL PULSES: Peripheral pulses 2+ throughout GI: COMMON NORMALS: Normal to inspection, nondistended, normoactive bowel sounds present, Soft to palpation and non-tender INSPECTION: Yes normal to inspection, No abdominal distension and Yes central obesity PALPATION: Yes Soft to palpation, No Firmness to palpation present (GI), No Tenderness to palpation present (GI) and No Guarding due to palpation present (GI) : COMMON NORMALS: Yes no CVA tenderness BLADDER/KIDNEY EXAM: Yes no CVA tenderness Back/Pelvis: COMMON NORMALS: no CVA tenderness, thoracic and lumbar spine normal to inspection, thoraco-lumbar ROM normal and straight leg raise negative bilaterally THORACIC SPINE/UPPER BACK: Yes thoracic ROM normal, No ROM limited and No pain with ROM LUMBAR SPINE/LOWER BACK: Yes lumbar ROM normal, No lumbar spinal tenderness and Yes paraspinal muscle tenderness Lumbar paraspinal muscle tenderness: bilateral SACROILIAC JOINTS: Yes SI joints normal Extremity: COMMON NORMALS: normal to inspection and capillary refill normal Neuro: COMMON NORMALS: patient oriented x3 and no focal motor deficits SENSORIUM/ORIENTATION: Yes alert GAIT: Yes Normal gait present MOTOR EXAM: 5/5 motor strength present throughout Psych: COMMON NORMALS: mental status grossly normal, Normal thought process present and cooperative ACTIVITY/MOTOR BEHAVIOR: Yes appropriate eye contact THOUGHT PROCESS: Normal thought process present Skin: COMMON NORMALS: no rashes or lesions noted and turgor normal GENERAL SKIN EXAM: no rashes or lesions noted and turgor normal Course ED course: 24-year-old female patient presents to the emergency department with prolonged menstrual cycles. Serology testing did not reveal anemia, hCG negative, chemistry unremarkable. Urinalysis without urinary tract infection, she was prescribed progesterone, previously used in the past due to similar symptoms. Side effects of progesterone discussed including DVT, PE. Referral to social and political studies professor completed to assist with needed follow-up. Advised to return to the emergency department if increased abdominal pain, fever or other concerning symptoms occur. Agrees with follow-up to INTERVENTIONAL TECHNOLOGIST. Questions were answered, results were discussed with plan of care. Vital Signs: Vital signs: Vital Signs Temperature 96.8 F L 02/11/20 14:06 Pulse Rate 94 02/11/20 14:06 Respiratory Rate 18 02/11/20 14:06 Blood Pressure 144/90 02/11/20 14:06 Pulse Oximetry 98 02/11/20 14:06 MDM - Female Lab Data: Labs: Lab Results 02/11/20 02/11/20 02/11/20 Range/Units 14:25 14:25 14:46 WBC 11.6 H (4.0-10.0) 10^3/ uL RBC 5.18 (4.1-5.3) 10^6/u L Hgb 15.5 H (11.5-15.3) g/dL Hct 45.9 (37.0-47.0) % MCV 88.6 (81-99) fL MCH 29.9 (28.0-34.0) pg MCHC 33.8 (30.0-36.0) g/dL RDW 13.1 (12.1-15.1) % Plt Count 355 (130-400) 10^3/c mm MPV 9.9 (7.4-10.4) fL Neut % (Auto) 64.4 % Lymph % (Auto) 24.5 % Amite % (Auto) 7.0 % Eos % (Auto) 2.8 % Baso % (Auto) 1.0 % Neut # (Auto) 7.49 (1.8-7.7) 10^3/u L Lymph # (Auto) 2.9 (0.8-4.8) 10^3/u L Amite # (Auto) 0.8 (0.2-0.9) 10^3/u L Eos # (Auto) 0.3 (0.0-0.8) 10^3/u L Baso # (Auto) 0.1 (0.0-0.1) 10^3/u L Nucleated RBC % (a uto) 0 % Nucleated RBCs # 0.0 /100WBC Sodium 140 (136-145) mmol/L Potassium 3.7 (3.5-5.1) mmol/L Chloride 104 (98-107) mmol/L Carbon Dioxide 24 (22-29) mmol/L Anion Gap 15.7 (5-19) BUN 8 (6-20) mg/dL Creatinine 0.6 (0.5-0.9) mg/dL GFR Calculation 125.0 (90-130) mL/min Glucose 105 (65-115) mg/dL Calculated Osmolal ity 289 (285-295) mOsm/k g Calcium 9.2 (8.5-10.5) mg/dL Total Bilirubin 0.6 (0.15-1.2) mg/dL AST 18 (0-32) U/L ALT 16 (0-33) U/L Alkaline Phosphata se 86 (35-105) IU/L Total Protein 7.0 (6.6-8.7) g/dL Albumin 4.4 (3.5-5.2) g/dL Globulin 2.6 (1.3-4.6) g/dL Urine Color (Yellow) Urine Appearance (CLEAR) Urine pH (5-7) Ur Specific Gravit y (1.005-1.030) Urine Protein (Negative) Urine Glucose (UA) (Normal) Urine Ketones (Negative) Urine Blood (Negative) Urine Nitrate (Negative) Urine Bilirubin (Negative) Urine Urobilinogen (Negative) mg/dL Ur Leukocyte Jocelyn ase (Negative) Urine RBC (0-2) /hpf Urine WBC (0-5) /hpf Ur Squamous Epith Cells (0-5) /hpf Amorphous Sediment Urine Bacteria (NONE) /hpf Urine Mucus /hpf Urine HCG, Qual Negative (Negative) 02/11/20 Range/Units 14:46 WBC (4.0-10.0) 10^3/ uL RBC (4.1-5.3) 10^6/u L Hgb (11.5-15.3) g/dL Hct (37.0-47.0) % MCV (81-99) fL MCH (28.0-34.0) pg MCHC (30.0-36.0) g/dL RDW (12.1-15.1) % Plt Count (130-400) 10^3/c mm MPV (7.4-10.4) fL Neut % (Auto) % Lymph % (Auto) % Amite % (Auto) % Eos % (Auto) % Baso % (Auto) % Neut # (Auto) (1.8-7.7) 10^3/u L Lymph # (Auto) (0.8-4.8) 10^3/u L Amite # (Auto) (0.2-0.9) 10^3/u L Eos # (Auto) (0.0-0.8) 10^3/u L Baso # (Auto) (0.0-0.1) 10^3/u L Nucleated RBC % (a uto) % Nucleated RBCs # /100WBC Sodium (136-145) mmol/L Potassium (3.5-5.1) mmol/L Chloride (98-107) mmol/L Carbon Dioxide (22-29) mmol/L Anion Gap (5-19) BUN (6-20) mg/dL Creatinine (0.5-0.9) mg/dL GFR Calculation (90-130) mL/min Glucose (65-115) mg/dL Calculated Osmolal ity (285-295) mOsm/k g Calcium (8.5-10.5) mg/dL Total Bilirubin (0.15-1.2) mg/dL AST (0-32) U/L ALT (0-33) U/L Alkaline Phosphata se (35-105) IU/L Total Protein (6.6-8.7) g/dL Albumin (3.5-5.2) g/dL Globulin (1.3-4.6) g/dL Urine Color Yellow (Yellow) Urine Appearance Clear (CLEAR) Urine pH 5 (5-7) Ur Specific Gravit y 1.030 (1.005-1.030) Urine Protein Neg (Negative) Urine Glucose (UA) Norm (Normal) Urine Ketones Negative (Negative) Urine Blood 3+ H (Negative) Urine Nitrate Negative (Negative) Urine Bilirubin 1+ H (Negative) Urine Urobilinogen 1 H (Negative) mg/dL Ur Leukocyte Jocelyn ase Negative (Negative) Urine RBC 15-25 H (0-2) /hpf Urine WBC None (0-5) /hpf Ur Squamous Epith Cells None (0-5) /hpf Amorphous Sediment Not Reportable Urine Bacteria Trace (NONE) /hpf Urine Mucus 2+ /hpf Urine HCG, Qual (Negative) Discharge Plan Discharge Patient Disposition: Home Clinical Impression: Prolonged menstrual cycle Menorrhagia Qualifiers: Menorrhagia type: with irregular cycle Qualified Code(s): N92.1 - Excessive and frequent menstruation with irregular cycle Condition: Stable Prescriptions: New norethindrone acetate 5 mg tablet 5 mg PO BID 7 Days Qty: 14 RF: 0 naproxen 500 mg tablet 500 mg PO BID PRN (Reason: pain) Qty: 30 RF: 0 Discharge Orders: Discharge ED (Routine); Ordered 02/11/20 Ordered By: Nadia Horton Discharge Diet: Usual diet Discharge Activity: Resume usual activity Patient Instructions: Dysfunctional Uterine Bleeding (ED), Dysmenorrhea (ED), Menorrhagia (ED) Activity Restrictions/Additional Instructions: social and political studies professor will be contacting you with appt for [employer]izer, please follow up for further recommendations with [employer] St[employer]izer Take medication twice daily with food (to avoid stomach upset) for 7 days return to the ED if you experience worsening abdominal pain, increased vaginal bleeding or other concerning symptoms Coding Level of Care Code 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
[2020-02-11 14:36] LABS: Basophils # 0.1 10^3/uL (0.0-0.1); Eosinophils # 0.3 10^3/uL (0.0-0.8); Eosinophils % 2.8 %; Hematocrit 45.9 % (37.0-47.0); Hemoglobin 15.5 g/dL (11.5-15.3); Lymphocytes # 2.9 10^3/uL (0.8-4.8); Lymphocytes % 24.5 %; Mean Corpuscular HGB Conc 33.8 g/dL (30.0-36.0); Mean Corpuscular Hemoglobin 29.9 pg (28.0-34.0); Mean Corpuscular Volume 88.6 fL (81-99); Mean Platelet Volume 9.9 fL (7.4-10.4); Monocytes # 0.8 10^3/uL (0.2-0.9); Neutrophils # 7.49 10^3/uL (1.8-7.7); Neutrophils % 64.4 %; Nucleated Red Blood Cells % 0 %; Platelet Count 355 10^3/cmm (130-400); Red Blood Count 5.18 10^6/uL (4.1-5.3); Red Cell Distribution Width 13.1 % (12.1-15.1); White Blood Count 11.6 10^3/uL (4.0-10.0)
[2020-02-11 14:49] LABS: Alanine Aminotransferase 16 U/L (0-33); Albumin Level 4.4 g/dL (3.5-5.2); Alkaline Phosphatase 86 IU/L (35-105); Anion Gap 15.7 (5-19); Aspartate Amino Transferase 18 U/L (0-32); Blood Urea Nitrogen 8 mg/dL (6-20); Calcium 9.2 mg/dL (8.5-10.5); Carbon Dioxide 24 mmol/L (22-29); Chloride 104 mmol/L (98-107); Globulin 2.6 g/dL (1.3-4.6); Glucose 105 mg/dL (65-115); Osmolality Calculated 289 mOsm/kg (285-295); Potassium 3.7 mmol/L (3.5-5.1); Sodium 140 mmol/L (136-145); Total Bilirubin 0.6 mg/dL (0.15-1.2)
[2020-02-11] MEDS: naproxen 500 mg Tablet PO (14:55)
[2020-02-11 15:10] LABS: Add Urine Microscopic? YES; Bilirubin Urine 1+ (Negative); Blood Urine 3+ (Negative); Glucose Urine UA Norm (Normal); Ketones Urine Negative (Negative); Leukocyte Esterase Urine Negative (Negative); Nitrate Urine Negative (Negative); Protein Urine Neg (Negative); RBC Urine 15-25 /hpf (0-2); Urine Appearance Clear (CLEAR); Urine Color Yellow (Yellow); Urobilinogen Urine 1 mg/dL (Negative); pH Urine 5 (5-7)
[2020-02-11 15:11] LABS: Add Urine Culture? Yes; Bacteria Urine TRACE /hpf; Mucus Urine 2+ /hpf
[2020-02-11 15:35] VITALS: BP 113/83; PULSE 83; RESP 16; O2SAT 98
--- NOTE | 2020-02-12 09:20 | DCPLANNER ---
billing services manager had message to schedule a follow up appointment for patient with [facility]. billing services manager [facility], gave clinic patients information. billing services manager was told that patients information would be printed and reviewed. Clinic will call patient with appointment.
--- NOTE | 2020-02-16 10:39 | DCPLANNER ---
Patient has a follow up appointment scheduled for Wednesday, March 13, 2020 at 1:30 with [facility] at [facility]. Clinic will call patient with appointment information.
--- NOTE | 2020-04-23 16:00 | DCPLANNER ---
Patient had a follow up appointment scheduled for 03.13.20 - appointment was cancelled.
== END 2020-02-11 15:35 | disposition home or self-care (01) ==
PROVIDERS: Emergency Provider Nurse Practitioner Family
DX: F17.210 Nicotine dependence, cigarettes, uncomplicated (principal)
CPT/HCPCS: 12345; 51701; 80053; 81001; 81025; 85025; 87086; 99283

== ENCOUNTER → 2020-02-22 12:00 | Outpatient (BNVA) | payer OTHER, SELFPAY | PROVIDERS: Visit Provider Nurse Practitioner Family | DX: Z20.828 Contact with and (suspected) exposure to other viral communicable diseases (principal); J06.9 Acute upper respiratory infection, unspecified | CPT/HCPCS: 87635 ==

== ENCOUNTER → 2020-05-31 12:15 | Outpatient (BNVA) | payer SELFPAY | PROVIDERS: Visit Provider Nurse Practitioner Family | DX: J02.9 Acute pharyngitis, unspecified (principal); J30.9 Allergic rhinitis, unspecified | CPT/HCPCS: 87071; 87880 ==

== ENCOUNTER → 2020-08-07 18:32 | Outpatient (BNVA) | payer SELFPAY | DX: J02.9 Acute pharyngitis, unspecified (principal); H66.001 Acute suppurative otitis media without spontaneous rupture of ear drum, right ear | CPT/HCPCS: 87880 ==

== ENCOUNTER → 2021-02-23 17:26 | Outpatient (BNVA) | payer SELFPAY | PROVIDERS: Visit Provider Family Medicine | DX: R05.9 Cough, unspecified (principal); J01.90 Acute sinusitis, unspecified | CPT/HCPCS: 87400; 87635 ==

== ENCOUNTER 2021-04-25 23:25 | Emergency (ER) | payer SELFPAY ==
[2021-04-25 23:37] VITALS: BP 151/96; PULSE 78; RESP 18; TEMP 36.8; O2SAT 99; BMI 38.0
--- NOTE | 2021-04-25 23:45 | ED_ITS ---
HPI - Dental/Oral General: Chief complaint: Dental/Oral Stated complaint: Tooth Ache Time Seen by Provider: 04/25/21 23:45 History of Present Illness: 26-year-old female comes in today with right upper jaw pain secondary to dental caries and fracture tooth. Patient reports she lost the side of her tooth and since then has had increased pain and discomfort. Patient has used Tylenol at home for pain but the pain was worse tonight. Patient appears moderate pain. Review of Systems General: Reports: 10 or more systems reviewed and unremarkable except in HPI and below ENMT: Reports: dental pain PFSH ED PFSH: Medical History (Updated 04/25/21 @ 23:52 by NIGEL Sifuentes) Acute bacterial pharyngitis Depression Migraines Pain, dental Scoliosis Surgical History History of surgical amputation of finger of left hand S/P tonsillectomy Family History Father Diabetes Cancer Grandfather Diabetes Cancer Brother Hypertension Mother Cancer Social History Smoking and tobacco status: current every day smoker cigarettes Packs smoked per day: 0.5 and smokeless tobacco Smokeless tobacco user: chewing tobacco Smokeless tobacco details: very rare Alcohol intake: current Alcohol intake frequency: holidays/special occasions only History of recent travel: No Female Reproductive History: Date of last menstrual period: 09/16/19 Physical Exam Const: COMMON NORMALS: alert HENMT: COMMON NORMALS: normocephalic HEAD & SCALP: normocephalic MOUTH: Normal oral and palatal mucosa present TEETH & GINGIVA: Yes gingiva abnormal (Tenderness and swelling noted to the upper rear molar area) tender TEETH & GINGIVA IMAGES: 1. Dental carry with tooth loss Neck/C-Spine: COMMON NORMALS: full ROM Resp: COMMON NORMALS: normal respiratory effort and clear to auscultation bilaterally AUSCULTATION: clear to auscultation bilaterally Cardio: COMMON NORMALS: regular rate and regular rhythm RATE: regular rate RHYTHM: regular rhythm GI: COMMON NORMALS: Soft to palpation and non-tender PALPATION: Yes Soft to palpation Extremity: COMMON NORMALS: full ROM Neuro: SENSORIUM/ORIENTATION: Yes alert Psych: COMMON NORMALS: cooperative Skin: COMMON NORMALS: no rashes or lesions noted GENERAL SKIN EXAM: no rashes or lesions noted Course Vital Signs: Vital signs: Vital Signs Temperature 98.2 F 04/25/21 23:37 Pulse Rate 78 04/25/21 23:37 Respiratory Rate 18 04/25/21 23:37 Blood Pressure 151/96 04/25/21 23:37 Pulse Oximetry 99 04/25/21 23:37 MDM - Dental/Oral Medical Decision Making Patient came in tonight for increasing dental pain. On exam patient has some dentition loss to a tooth with a significant cavity. Vital signs are normal. Differential diagnosis includes dental caries, dentalgia, periapical abscess. No sign of significant abscess was noted. Patient will be treated with antibiotic in case there was a small abscess that just was not apparent at this time. Patient was recommended to use viscous lidocaine and ibuprofen for further pain relief. Patient reported understanding agreed to plan. Discharge Plan Discharge Patient Disposition: Home Clinical Impression: Pain, dental Condition: Stable Prescriptions: New Augmentin 875-125 mg tablet 1 tab PO BID Qty: 14 0RF Lidocaine Viscous 2 % solution 10 ml mucous membrane Q3H PRN (Reason: pain) Qty: 100 0RF Rx Instructions: apply to gauze and place on area of pain, hold until relief ibuprofen 800 mg tablet 800 mg PO Q8H PRN (Reason: pain) Qty: 20 0RF No Action azithromycin 250 mg tablet 250 mg PO DAILY 5 Days Qty: 6 0RF Rx Instructions: Z-hilario, take as package directs doxycycline hyclate 100 mg capsule 100 mg PO BID 5 Days Qty: 10 0RF prednisone 20 mg tablet 20 mg PO DAILY 5 Days Qty: 10 0RF Discharge Orders: Discharge ED (Routine); Ordered 04/25/21 Ordered By: Braeden Hackett Discharge Diet: Usual diet Discharge Activity: Increase activity as tolerated Patient Instructions: Toothache (ED) Activity Restrictions/Additional Instructions: Medication as directed. Drink plenty of water with it. Follow-up with primary care for further instruction. Follow-up with dentist for definitive care. Coding Level of Care Code ED Business Analyst Sales Operations for Sangita Jacobo
[2021-04-26] MEDS: lidocaine 2% viscous 15 mL UDC 5 ML MUCOUS MEM (00:03)
[2021-04-26] MEDS: HYDROcodone-acetaminophen 5-325 mg Tablet 1 TAB PO (00:03)
[2021-04-26] MEDS: amoxicillin-clav 875-125 mg Tablet 1 TAB PO (00:03)
== END 2021-04-26 00:04 | disposition home or self-care (01) ==
PROVIDERS: Emergency Provider Nurse Practitioner Family
DX: K08.89 Other specified disorders of teeth and supporting structures (principal); F17.210 Nicotine dependence, cigarettes, uncomplicated; F17.220 Nicotine dependence, chewing tobacco, uncomplicated
CPT/HCPCS: 99283

== ENCOUNTER 2021-09-07 14:37 | Emergency (ER) | payer SELFPAY ==
[2021-09-07 14:45] VITALS: BP 144/104; PULSE 90; RESP 8; TEMP 36.8; O2SAT 97; BMI 37.2
--- NOTE | 2021-09-07 15:01 | W.ED.DENTAL ---
HPI - Dental/Oral General: Chief complaint: Dental/Oral Stated complaint: dental pain Time Seen by Provider: 09/07/21 14:50 Source: patient Mode of arrival: ambulatory Limitations: no limitations History of Present Illness: 26-year-old female presents to the ER today for dental pain x2 to 3 days. Patient reports she has very bad teeth and has been trying to get them removed but is having to save up money. She reports over the last several days her front left 2 teeth have been bothering her. She reports these are fractured and have cavities. She reports there is swelling in the gum above them. Patient reports mild swelling in the face also. Patient is taking Tylenol and ibuprofen every 4 hours with minimal improvement. Review of Systems General: Reports: 10 or more systems reviewed and unremarkable except in HPI and below PFSH ED PFSH: Medical History Acute bacterial pharyngitis Depression Migraines Pain, dental Scoliosis Surgical History History of surgical amputation of finger of left hand S/P tonsillectomy Family History Father Diabetes Cancer Grandfather Diabetes Cancer Brother Hypertension Mother Cancer Social History Smoking and tobacco status: current every day smoker cigarettes Packs smoked per day: 0.5 and smokeless tobacco Smokeless tobacco user: chewing tobacco Smokeless tobacco details: very rare Alcohol intake: current Alcohol intake frequency: holidays/special occasions only History of recent travel: No Female Reproductive History: Date of last menstrual period: 09/16/19 Physical Exam Const: COMMON NORMALS: no acute distress, average body habitus, patient oriented x3, no limitations, healthy appearing, alert and well nourished HENMT: COMMON NORMALS: normocephalic, external ears normal, Normal nasal mucous membranes and turbinates present and moist oral mucous membranes; dentition not normal and gingiva not normal HEAD & SCALP: normocephalic NOSE: Normal nasal mucous membranes and turbinates present EXTERNAL EAR: Yes external ears normal TEETH & GINGIVA IMAGES: 1. fractured and with cavities and surrounding gingival swelling Resp: COMMON NORMALS: normal respiratory effort EFFORT & INSPECTION: Yes able to speak in complete sentences Cardio: COMMON NORMALS: regular rate and regular rhythm RATE: regular rate RHYTHM: regular rhythm Extremity: COMMON NORMALS: full ROM Neuro: COMMON NORMALS: patient oriented x3 SENSORIUM/ORIENTATION: Yes alert Psych: COMMON NORMALS: mental status grossly normal, Normal thought process present, cooperative and normal affect THOUGHT PROCESS: Normal thought process present Skin: COMMON NORMALS: no rashes or lesions noted GENERAL SKIN EXAM: no rashes or lesions noted Course ED course: 26-year-old female presents to the ER today for dental pain x2 to 3 days. Patient reports significant dental problems including multiple fractured teeth with cavities. She is trying to get into a dentist to have them removed but has to save up money. Patient reports over the last 2 to 3 days she is had increasing pain in the left front teeth. She reports some swelling of the gingiva around them. Patient reports pain is not improving with Tylenol and Motrin she is using at home. On exam patient has multiple teeth which are fractured and rotting. There is gingival swelling around the front left to teeth. No facial swelling noted. No fever. Vitals are stable. Blood pressure slightly elevated however patient reports this is chronic and likely due to pain. Vital Signs: Vital signs: Vital Signs Temperature 98.2 F 09/07/21 14:45 Pulse Rate 90 09/07/21 14:45 Respiratory Rate 8 L 09/07/21 14:45 Blood Pressure 144/104 09/07/21 14:45 Pulse Oximetry 97 09/07/21 14:45 MDM - Dental/Oral Medical Decision Making 26-year-old female presents to the ER today for dental pain x2 to 3 days. Patient reports significant dental problems including multiple fractured teeth with cavities. She is trying to get into a dentist to have them removed but has to save up money. Patient reports over the last 2 to 3 days she is had increasing pain in the left front teeth. She reports some swelling of the gingiva around them. Patient reports pain is not improving with Tylenol and Motrin she is using at home. On exam patient has multiple teeth which are fractured and rotting. There is gingival swelling around the front left to teeth. No facial swelling noted. No fever. Vitals are stable. Blood pressure slightly elevated however patient reports this is chronic and likely due to pain. We will treat patient with clindamycin 4 times daily and viscous lidocaine for pain. Recommended she increase ibuprofen 800 mg 4 times daily and 1000 mg of Tylenol 3 times daily. Apply ice to reduce swelling. Follow-up with dentist in 7 to 10 days. Return to the ER with new or worsening symptoms. Patient verbalized understanding and was in agreement with the treatment plan. Critical Care Time Critical Care Time: Critical Care Time: No Discharge Plan Discharge Patient Disposition: Home Clinical Impression: Dental abscess Condition: Stable Prescriptions: New Cleocin HCl 150 mg capsule 150 mg PO Q6H 7 Days Qty: 28 0RF Lidocaine Viscous 2 % solution 10 ml mucous membrane Q3H PRN (Reason: pain) 3 Days Qty: 100 0RF No Action azithromycin [Zithromax Z-Avinash] 250 mg tablet See Rx Instructions PO .COMPLEX Qty: 6 0RF Rx Instructions: take 500 mg today (day 1), then 250 mg for 4 days (days 2-5) PO Discharge Orders: Discharge ED (Routine); Ordered 09/07/21 Ordered By: Nay Yates Discharge Diet: Soft Mechanical Discharge Activity: Resume usual activity Patient Instructions: Opioid Safety Activity Restrictions/Additional Instructions: Take clindamycin as prescribed. Use viscous lidocaine as prescribed for several days. Alternate Tylenol and Motrin as discussed. Apply ice to reduce swelling. Follow-up with dentist in 7 to 10 days. Return to the ER with new or worsening symptoms. Coding Level of Care Code ED Set Up / Operator for Sangita Jacobo
== END 2021-09-07 15:15 | disposition home or self-care (01) ==
PROVIDERS: Emergency Provider Physician Assistant
DX: K04.7 Periapical abscess without sinus (principal); F17.210 Nicotine dependence, cigarettes, uncomplicated; F17.220 Nicotine dependence, chewing tobacco, uncomplicated
CPT/HCPCS: 99283

== ENCOUNTER 2021-11-05 01:22 | Emergency (ER) | payer SELFPAY ==
[2021-11-05 01:26] VITALS: BP 140/93; PULSE 79; RESP 16; TEMP 35.9; O2SAT 100; BMI 36.3
--- NOTE | 2021-11-05 01:46 | ED_ITS ---
HPI - General Adult General: Chief complaint: General Medical Stated complaint: Nose Opening swelling Time Seen by Provider: 11/05/21 01:39 History of Present Illness: 26-year-old female presents with some pain and what she feels like swelling around her left nare. Patient reports that she has really bad teeth and wonders if it might be a result of a dental infection. Patient has some old clindamycin that she started 2 days ago with minimal results. There is no significant warmth or redness to the skin. She has no systemic complaints Review of Systems General: Reports: 10 or more systems reviewed and unremarkable except in HPI and below ENMT: Reports: other (Please see HPI) Skin/Breast: Reports: other (Please see HPI) PFS ED PFSH: Medical History (Updated 11/05/21 @ 01:51 by Rich Bueno DO) Acute bacterial pharyngitis Depression Migraines Pain, dental Scoliosis Surgical History History of surgical amputation of finger of left hand S/P tonsillectomy Family History Father Diabetes Cancer Grandfather Diabetes Cancer Brother Hypertension Mother Cancer Social History Smoking and tobacco status: current every day smoker cigarettes Packs smoked per day: 0.5 and smokeless tobacco Smokeless tobacco user: chewing tobacco Smokeless tobacco details: very rare Alcohol intake: current Alcohol intake frequency: holidays/special occasions only History of recent travel: No Female Reproductive History: Date of last menstrual period: 11/05/21 Physical Exam Const: COMMON NORMALS: no acute distress, patient oriented x3 and alert HENMT: NOSE IMAGE: 1. Tenderness, minimal swelling at best Resp: COMMON NORMALS: normal respiratory effort, No use of accessory muscles and clear to auscultation bilaterally AUSCULTATION: clear to auscultation bilaterally Cardio: COMMON NORMALS: regular rate and regular rhythm RATE: regular rate RHYTHM: regular rhythm Extremity: COMMON NORMALS: full ROM and capillary refill normal Neuro: COMMON NORMALS: patient oriented x3 and moves all extremities SENSORIUM/ORIENTATION: Yes alert Psych: COMMON NORMALS: mental status grossly normal, cooperative and normal affect Skin: NARRATIVE SKIN EXAM: No significant swelling, fluctuance, or induration palpated or noted Course Vital Signs: Vital signs: Vital Signs Temperature 96.6 F L 11/05/21 01:26 Pulse Rate 79 11/05/21 01:26 Respiratory Rate 16 11/05/21 01:26 Blood Pressure 140/93 11/05/21 01:26 Pulse Oximetry 100 11/05/21 01:26 Oxygen Delivery Me thod 11/05/21 01:26 MDM - General Adult Medical Decision Making Patient likely may be early infection because she does have a very poor dentition. I will give her a prescription for Bactrim that she can use in addition to the clindamycin. Patient reports she has a appointment with the dentist tomorrow Discharge Plan Discharge Patient Disposition: Home Clinical Impression: Severe dental caries, Cellulitis Condition: Stable Prescriptions: New sulfamethoxazole-trimethoprim [Bactrim DS] 800-160 mg tablet 1 tab PO DAILY 5 Days Qty: 10 0RF No Action erythromycin 5 mg/gram (0.5 %) ointment 0.5 inch ophthalmic (eye) QID 7 Days Qty: 3.5 0RF Discharge Orders: Discharge ED (Routine); Ordered 11/05/21 Ordered By: Rich Bueno Discharge Diet: Usual diet Discharge Activity: Resume usual activity Patient Instructions: Opioid Safety, Pain Management, Cellulitis (ED) Activity Restrictions/Additional Instructions: Follow-up with your primary care provider in a couple days for recheck Please keep your appointment for your teeth tomorrow 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
[2021-11-05 01:59] VITALS: BP 126/87; PULSE 77; RESP 16; O2SAT 98
== END 2021-11-05 02:04 | disposition home or self-care (01) ==
PROVIDERS: Emergency Provider Student in an Organized Health Care Education/Training Program
DX: K02.9 Dental caries, unspecified (principal); J34.0 Abscess, furuncle and carbuncle of nose; F17.210 Nicotine dependence, cigarettes, uncomplicated
CPT/HCPCS: 99283

== ENCOUNTER → 2021-11-06 15:36 | Outpatient (BNVA) | payer SELFPAY | PROVIDERS: Visit Provider Family Medicine | DX: K02.9 Dental caries, unspecified (principal); R20.0 Anesthesia of skin; L03.90 Cellulitis, unspecified | CPT/HCPCS: 80053; 85025; 86140 ==

== ENCOUNTER → 2022-01-05 15:48 | Outpatient (BNVA) | payer SELFPAY | PROVIDERS: Visit Provider Family Medicine | DX: N92.0 Excessive and frequent menstruation with regular cycle (principal) | CPT/HCPCS: 81025; 85025 ==

== ENCOUNTER → 2022-02-27 15:50 | Outpatient (BNVA) | payer SELFPAY | PROVIDERS: Visit Provider Nurse Practitioner Women's Health | DX: N91.2 Amenorrhea, unspecified (principal); Z12.4 Encounter for screening for malignant neoplasm of cervix; N93.9 Abnormal uterine and vaginal bleeding, unspecified | CPT/HCPCS: 82670; 83001; 84146; 84402; 84443; 85025; 88175 ==

== ENCOUNTER → 2022-03-09 13:21 | Outpatient (BNVA) | payer SELFPAY | PROVIDERS: Visit Provider Nurse Practitioner Women's Health | DX: N93.9 Abnormal uterine and vaginal bleeding, unspecified (principal); R93.89 Abnormal findings on diagnostic imaging of other specified body structures | CPT/HCPCS: 76830 ==

== ENCOUNTER → 2022-03-12 13:30 | Outpatient (BNVA) | payer SELFPAY | PROVIDERS: Visit Provider Nurse Practitioner Women's Health | DX: N93.9 Abnormal uterine and vaginal bleeding, unspecified (principal); R93.89 Abnormal findings on diagnostic imaging of other specified body structures | CPT/HCPCS: 81025; 88305 ==

== ENCOUNTER 2023-03-30 09:01 | Emergency (ER) | payer MEDICAID, SELFPAY ==
[2023-03-30] VITALS (8 sets, daily range): BP systolic 110–157; BP diastolic 61–103; PULSE 75–89; TEMP 36.9; O2SAT 91–99; BMI 38.9
--- NOTE | 2023-03-30 09:13 | W.ED.HA ---
HPI - Headache General: Chief Complaint: Headache Stated Complaint: headache, N/V Time Seen by Provider: 03/30/23 09:05 Source: patient Mode of arrival: ambulatory History of Present Illness: 28-year-old female presents emergency room reporting a migraine headache on the left side began this morning she has had nausea and vomiting with it similar to headache she has had in the past. She has not taken anything for the headache to this point. MD elicited complaint: headache Associated symptoms: Reports eye pain, nausea and sound sensitivity; Deny chest pain, confusion, cough, diaphoresis, eye redness, fever(s), lightheadedness, loss of vision, malaise, neck stiffness, numbness, paresthesias, photophobia, pre-syncope, rash, seizures, short of breath, syncope, vomiting or weakness Review of Systems Const: Denies: fever(s), chills, malaise or diaphoresis Card: Denies: chest pain, lightheadedness, syncope or pre-syncope Resp: Denies: dyspnea GI: Reports: nausea; Denies: abdominal pain or vomiting : Denies: dysuria, urinary frequency or urinary urgency Musc: Denies: neck pain or back pain Skin/Breast: Denies: rash Neuro: Denies: confusion PFSH ED PFSH: Medical History Abnormal uterine bleeding (AUB) anovulatory bleeding No pertinent past medical history neghx: htn,dm,thyroid,dvt/pe PCP: None Migraines w/o aura--- gets 2-3/year that required intervention Depression Scoliosis Surgical History [place] teeth extracted S/P tonsillectomy History of surgical amputation of finger of left hand Family History Father Diabetes Lung cancer Grandfather Diabetes maternal Brother Hypertension Diabetes Mother History of kidney cancer Family/Other Stroke maternal uncle Other Cancer Clotting disorder Denies family history of Colon cancer Ovarian cancer Heart disease Breast cancer Family history of thyroid problem Uterine cancer Hyperchloremia Social History Substance/Drug Use: never Physical Exam Const: COMMON NORMALS: no acute distress GENERAL APPEARANCE: cooperative and comfortable ORIENTATION/CONSCIOUSNESS: Yes awake, Yes oriented to person, Yes oriented to place and Yes oriented to time HENMT: COMMON NORMALS: normocephalic, atraumatic and hearing grossly normal bilaterally HEAD & SCALP: normocephalic and atraumatic Eye: DIRECT OPHTHALMOSCOPY: No photophobia Resp: COMMON NORMALS: normal respiratory effort, No retractions, No use of accessory muscles and clear to auscultation bilaterally AUSCULTATION: clear to auscultation bilaterally Cardio: COMMON NORMALS: regular rate, regular rhythm and No murmurs present (Cardio) RATE: regular rate RHYTHM: regular rhythm GI: COMMON NORMALS: Soft to palpation and No hepatosplenomegaly present AUSCULTATION: Yes normoactive bowel sounds PALPATION: Yes Soft to palpation, No Tenderness to palpation present (GI), No Guarding due to palpation present (GI) and Yes No hepatosplenomegaly present Extremity: COMMON NORMALS: normal to inspection, capillary refill normal, no clubbing, cyanosis or edema, no calf tenderness and no pedal edema Neuro: SENSORIUM/ORIENTATION: Yes oriented to person, Yes oriented to place and Yes oriented to time Skin: COMMON NORMALS: no rashes or lesions noted GENERAL SKIN EXAM: no rashes or lesions noted Course Vital Signs: Vital signs: Vital Signs Temperature 98.5 F 03/30/23 09:06 Pulse Rate 80 03/30/23 13:16 Blood Pressure 135/77 03/30/23 13:16 Pulse Oximetry 91 03/30/23 13:16 Oxygen Delivery Me thod Room Air 03/30/23 12:06 MDM - Headache Medical Decision Making Symptoms improved with interventions given. Recommend follow-up with primary care for management. Differential Diagnosis Likely migraine and tension headache Medical Records I reviewed the patient's medical records. Lab Data I reviewed the patient's lab results. 03/30/23 09:25 03/30/23 09:25 Laboratory Results WBC 8.47 10^3/uL (3.29-11.43) 03/30/23 09:25 RBC 5.79 10^6/uL (3.85-5.65) H 03/30/23 09:25 Hgb 16.30 g/dL (11.27-16.99) 03/30/23 09:25 Hct 49.3 % (36-47) H 03/30/23 09:25 MCV 85.1 fl (85-98) 03/30/23 09:25 MCH 28.2 pg (27-33) 03/30/23 09: MCHC 33.1 g/dL (30-55) 03/30/23 09:25 RDW 14.7 % (12.1-15.1) 03/30/23 09:25 Plt Count 324 10^3/cmm (157-399) 03/30/23 09:25 MPV 10.0 fL (7.4-10.4) 03/30/23 09:25 Neut % (Auto) 59.6 % 03/30/23 09:25 Lymph % (Auto) 28.9 % 03/30/23 09:25 [place] % (Auto) 6.8 % 03/30/23 09:25 Eos % (Auto) 3.1 % 03/30/23 09:25 Baso % (Auto) 1.4 % 03/30/23 09:25 Neut # (Auto) 5.04 10^3/uL (1.8-7.7) 03/30/23 09:25 Lymph # (Auto) 2.5 10^3/uL (0.8-4.8) 03/30/23 09:25 [place] # (Auto) 0.6 10^3/uL (0.2-0.9) 03/30/23 09:25 Eos # (Auto) 0.3 10^3/uL (0.0-0.8) 03/30/23 09:25 Baso # (Auto) 0.1 10^3/uL (0.0-0.1) 03/30/23 09:25 Nucleated RBC % (auto) 0 % 03/30/23: Nucleated RBCs # 0.0 /100WBC 03/30/23 09:25 Sodium 139 mmol/L (136-145) 03/30/23 09:25 Potassium 4.0 mmol/L (3.5-5.1) 03/30/23 09:25 Chloride 102 mmol/L (98-107) 03/30/23 09:25 Carbon Dioxide 26 mmol/L (22-29) 03/30/23 09:25 Anion Gap 15.0 (5-19) 03/30/23 09:25 BUN 11 mg/dL (6-20) 03/30/23 09:25 Creatinine 0.7 mg/dL (0.5-0.9) 03/30/23 09:25 GFR Calculation 101.1 mL/min (90-130) 03/30/23 09:25 Glucose 98 mg/dL (65-115) 03/30/23 09:25 Calculated Osmolality 287 mOsm/kg (285-295) 03/30/23 09:25 Calcium 9.2 mg/dL (8.5-10.5) 03/30/23 09:25 Total Bilirubin 1.1 mg/dL (0.15-1.2) 03/30/23 09:25 AST 24 U/L (0-32) 03/30/23 09:25 ALT 20 U/L (0-33) 03/30/23 09:25 Alkaline Phosphatase 94 U/L (35-105) 03/30/23 09:25 Total Protein 8.0 g/dL (6.6-8.7) 03/30/23 09:25 Albumin 4.7 g/dL (3.5-5.2) 03/30/23 09:25 Globulin 3.3 g/dL (1.3-4.6) 03/30/23 09:25 HCG, Qual Negative (Negative) 03/30/23 09:25 No radiology studies performed this visit Discharge Plan Discharge Patient Disposition: Home Clinical Impression: Migraines Qualifiers: Migraine type: without aura Status migrainosus presence: without status migrainosus Intractability: not intractable Qualified Code(s): G43.009 - Migraine without aura, not intractable, without status migrainosus Condition: Stable Prescriptions: No Action No Known Home Medications Discharge Orders: Discharge ED (Routine); Ordered 03/30/23 Ordered By: Kellie Gauthier Discharge Diet: Advance as tolerated Discharge Activity: Resume usual activity Patient Instructions: Migraine Headache (ED) Stand Alone Forms: Work/School Release Coding 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
[2023-03-30] MEDS: sodium chloride 0.9% 1,000 ML 999 ML IV (09:37)
[2023-03-30 09:38] LABS: Basophils # 0.1 10^3/uL (0.0-0.1); Basophils % 1.4 %; Eosinophils # 0.3 10^3/uL (0.0-0.8); Eosinophils % 3.1 %; Hematocrit 49.3 % (36-47); Lymphocytes # 2.5 10^3/uL (0.8-4.8); Lymphocytes % 28.9 %; Mean Corpuscular HGB Conc 33.1 g/dL (30-55); Mean Corpuscular Hemoglobin 28.2 pg (27-33); Mean Corpuscular Volume 85.1 fl (85-98); Monocytes # 0.6 10^3/uL (0.2-0.9); Monocytes % 6.8 %; Neutrophils # 5.04 10^3/uL (1.8-7.7); Neutrophils % 59.6 %; Nucleated Red Blood Cells % 0 %; Platelet Count 324 10^3/cmm (157-399); Red Blood Count 5.79 10^6/uL (3.85-5.65); Red Cell Distribution Width 14.7 % (12.1-15.1); White Blood Count 8.47 10^3/uL (3.29-11.43)
[2023-03-30] MEDS: ketorolac 30 mg/mL INJ IVP (09:38)
[2023-03-30] MEDS: dexamethasone 10 mg/mL INJ IM (09:41)
[2023-03-30] MEDS: metoclopramide 5 mg/mL SDV 2 mL 10 MG IVP (09:41)
[2023-03-30 10:05] LABS: HCG, Serum Qual Negative (Negative)
[2023-03-30 10:06] LABS: Alanine Aminotransferase 20 U/L (0-33); Albumin Level 4.7 g/dL (3.5-5.2); Alkaline Phosphatase 94 U/L (35-105); Aspartate Amino Transferase 24 U/L (0-32); Blood Urea Nitrogen 11 mg/dL (6-20); Calcium 9.2 mg/dL (8.5-10.5); Carbon Dioxide 26 mmol/L (22-29); Chloride 102 mmol/L (98-107); Globulin 3.3 g/dL (1.3-4.6); Glomerular Filtration Rate 101.1 mL/min (90-130); Glucose 98 mg/dL (65-115); Osmolality Calculated 287 mOsm/kg (285-295); Sodium 139 mmol/L (136-145); Total Bilirubin 1.1 mg/dL (0.15-1.2)
== END 2023-03-30 13:19 | disposition home or self-care (01) ==
PROVIDERS: Emergency Provider Family Medicine
DX: G43.009 Migraine without aura, not intractable, without status migrainosus (principal)
CPT/HCPCS: 80053; 84703; 85025; 96372; 96374; 96375; 99284; J1100; J1885; J2765; J7030

== ENCOUNTER → 2023-10-04 12:38 | Outpatient (BNVA) | payer MEDICAID, SELFPAY | PROVIDERS: Visit Provider Nurse Practitioner Family | DX: M25.562 Pain in left knee (principal); M76.51 Patellar tendinitis, right knee | CPT/HCPCS: 73562 ==

== ENCOUNTER → 2023-10-14 10:45 | Outpatient (BNVA) | payer MEDICAID, SELFPAY | PROVIDERS: Visit Provider Nurse Practitioner Women's Health | DX: E28.2 Polycystic ovarian syndrome (principal); N93.9 Abnormal uterine and vaginal bleeding, unspecified | CPT/HCPCS: 83036; 84146; 84403; 84439; 84443; 84702; 85025 ==

== ENCOUNTER → 2023-11-05 13:08 | Outpatient (BNVA) | payer MEDICAID, SELFPAY | PROVIDERS: Visit Provider Nurse Practitioner Women's Health | DX: N93.9 Abnormal uterine and vaginal bleeding, unspecified (principal); N84.0 Polyp of corpus uteri | CPT/HCPCS: 76830; 84402 ==

== ENCOUNTER → 2023-11-25 14:46 | Outpatient (BNVA) | payer MEDICAID, SELFPAY | DX: M79.671 Pain in right foot (principal); Z76.89 Persons encountering health services in other specified circumstances | CPT/HCPCS: 73630; 80053 ==

== ENCOUNTER → 2023-12-13 12:55 | Outpatient (BNVA) | payer MEDICAID, SELFPAY | PROVIDERS: Visit Provider Podiatrist Foot & Ankle Surgery | DX: M21.621 Bunionette of right foot (principal); Q82.8 Other specified congenital malformations of skin | CPT/HCPCS: 99203 ==

== ENCOUNTER 2024-01-18 10:21 | Emergency (ER) | payer MEDICAID, SELFPAY ==
--- NOTE | 2024-01-18 10:34 | W.ED.BACK ---
HPI - Back Pain/Injury General: Chief Complaint: Back Pain/Injury Stated Complaint: back pain Time Seen by Provider: 01/18/24 10:25 Source: patient Mode of arrival: ambulatory Limitations: no limitations History of Present Illness: Patient is a 28-year-old female presents to ED today with a complaint of left flank/back pain that began yesterday morning. She states pain has been constant since onset. She denies history of kidney or ureter stones. She states her mother does have a history of kidney stones. She is not having any dysuria, frequency, urgency, or hematuria. No nausea or vomiting. Pain seems to be worse with movement. She denies any recent activities that could have injured her back such as lifting, twisting, turning, etc. Patient has not noticed a rash or burning sensation. No fevers. She does have a history of scoliosis and sometimes this causes her some back discomfort. She has some pain with deep inhalation. She has not had any cough, difficulty breathing, shortness of breath, recent URI-like symptoms MD elicited complaint: back pain Onset (ago): day(s) Timing: constant Severity: moderate Similar Symptoms Previously: No Location: left flank Radiation: none Exacerbating factors: movement and deep breaths Relieving factors: none Associated symptoms: Reports no associated symptoms; Deny abdominal pain, chills, difficulty walking, dysuria, fatigue, fever(s), nausea, urinary urgency or vomiting Work related injury: No Related Data Previous Rx's Medication Instructions Recorded topiramate 50 mg tablet 50 mg PO DAILY #30 tabs 12/29/23 Allergies Allergy/AdvReac Type Severity Reaction Status Date / Time No Known Allergies Allergy Verified 01/17/24 10:45 Review of Systems Const: Denies: fever(s), chills, body aches, fatigue or malaise Card: Denies: chest pain Resp: Reports: pain on inspiration; Denies: dyspnea, productive cough, non-productive cough, wheezing, hemoptysis or chest congestion GI: Denies: abdominal pain, nausea, vomiting or diarrhea : Reports: flank pain; Denies: difficulty voiding, dysuria, urinary frequency, urinary urgency, urinary hesitancy or dribbling Musc: Reports: back pain; Denies: neck pain, extremity pain, extremity swelling, joint pain or joint swelling Skin/Breast: Denies: rash Neuro: Denies: numbness in extremities, weakness in extremities, sensory changes or difficulty walking [facility] ED PFSH: Medical History Encounter to establish care Right foot pain Abnormal uterine bleeding (AUB) anovulatory bleeding No pertinent past medical history neghx: htn,dm,thyroid,dvt/pe PCP: None Migraines w/o aura--- gets 2-3/year that required intervention Depression Scoliosis Surgical History [place] teeth extracted S/P tonsillectomy History of surgical amputation of finger of left hand Family History Father Diabetes Lung cancer Grandfather Diabetes maternal Brother Hypertension Diabetes Mother History of kidney cancer Family/Other Stroke maternal uncle Other Cancer Clotting disorder Denies family history of Colon cancer Ovarian cancer Heart disease Breast cancer Family history of thyroid problem Uterine cancer Hyperchloremia Social History Smoking and tobacco/nicotine status: current every day tobacco/nicotine user Alcohol intake: never Substance/Drug Use: never Adopted: No Physical Exam Const: COMMON NORMALS: no acute distress, patient oriented x3, no limitations, alert and well nourished GENERAL APPEARANCE: cooperative NUTRITIONAL APPEARANCE: obese morbidly obese (BMI 42.1) Chest: COMMONS NORMALS: normal inspection of the chest and normal palpation of entire chest wall Resp: COMMON NORMALS: normal respiratory effort and clear to auscultation bilaterally AUSCULTATION: clear to auscultation bilaterally Cardio: COMMON NORMALS: regular rate and regular rhythm RATE: regular rate RHYTHM: regular rhythm GI: COMMON NORMALS: Normal to inspection, nondistended, normoactive bowel sounds present, Soft to palpation, non-tender, No hepatosplenomegaly present and no masses PALPATION: Yes Soft to palpation and Yes No hepatosplenomegaly present : BLADDER/KIDNEY EXAM: Yes CVA tenderness on the left Back/Pelvis: COMMON NORMALS: thoracic and lumbar spine normal to inspection, no thoracic nor lumbar tenderness, thoraco-lumbar ROM normal and straight leg raise negative bilaterally GENERAL BACK: Yes CVA tenderness Extremity: COMMON NORMALS: no clubbing, cyanosis or edema, no calf tenderness and no pedal edema GENERAL: Yes normal exam except as noted Neuro: COMMON NORMALS: patient oriented x3, moves all extremities, no focal motor deficits, no sensory deficits noted and gait normal SENSORIUM/ORIENTATION: Yes alert Skin: COMMON NORMALS: no rashes or lesions noted GENERAL SKIN EXAM: no rashes or lesions noted Course Vital Signs: Vital signs: Vital Signs Temperature 98.2 F 01/18/24 10:37 Pulse Rate 94 01/18/24 10:43 Respiratory Rate 16 01/18/24 10:37 Blood Pressure 150/102 01/18/24 10:43 Pulse Oximetry 100 01/18/24 10:43 Oxygen Delivery Me thod Room Air 01/18/24 10:43 MDM - Back Pain/Injury Medical Decision Making Patient here with left-sided back pain. She clinically appears in no acute distress. Vital signs are stable. She is not tachycardic or febrile. Blood work showing a normal white count. Kidney functions are unremarkable. The remainder of her labs are benign. Her UA is clear. 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 At this time I do not suspect any life-threatening or emergent etiology for her back discomfort. We discussed conservative therapies at home and following up with primary care in a reasonable timeframe. Return ED precautions were discussed. Medical Records I reviewed the patient's medical records. Labs I reviewed the patient's lab results. 01/18/24 11:38 01/18/24 11:38 Radiology Impressions Chest X-Ray 01/18/24 10:48 IMPRESSION: Congenital spine abnormality as above. No acute chest abnormality identified. Laboratory Results WBC 10.75 10^3/uL (3.29-11.43) 01/18/24 11:38 RBC 5.53 10^6/uL (3.85-5.65) 01/18/24 11:38 Hgb 15.70 g/dL (11.27-16.99) 01/18/24 11:38 Hct 48.6 % (36-47) H 01/18/24 11:38 MCV 87.9 fl (85-98) 01/18/24 11:38 MCH 28.4 pg (27-33) 01/18/24 11:38 MCHC 32.3 g/dL (30-55) 01/18/24 11:38 RDW 13.6 % (12.1-15.1) 01/18/24 11:38 Plt Count 370 10^3/cmm (157-399) 01/18/24 11:38 MPV 9.6 fL (7.4-10.4) 01/18/24 11:38 Neut % (Auto) 68.5 % 01/18/24 11:38 Lymph % (Auto) 19.3 % 01/18/24 11:38 [place] % (Auto) 8.5 % 01/18/24 11:38 Eos % (Auto) 2.4 % 01/18/24 11:38 Baso % (Auto) 0.8 % 01/18/24 11:38 Neut # (Auto) 7.36 10^3/uL (1.8-7.7) 01/18/24 11:38 Lymph # (Auto) 2.1 10^3/uL (0.8-4.8) 01/18/24 11:38 [place] # (Auto) 0.9 10^3/uL (0.2-0.9) 01/18/24 11:38 Eos # (Auto) 0.3 10^3/uL (0.0-0.8) 01/18/24 11:38 Baso # (Auto) 0.1 10^3/uL (0.0-0.1) 01/18/24 11:38 Nucleated RBC % (auto) 0 % 01/18/24 11:38 Nucleated RBCs # 0.0 /100WBC 01/18/24 11:38 Sodium 140 mmol/L (136-145) 01/18/24 11:38 Potassium 4.1 mmol/L (3.5-5.1) 01/18/24 11:38 Chloride 105 mmol/L (98-107) 01/18/24 11:38 Carbon Dioxide 24 mmol/L (22-29) 01/18/24 11:38 Anion Gap 15.1 (5-19) 01/18/24 11:38 BUN 9 mg/dL (6-20) 01/18/24 11:38 Creatinine 0.7 mg/dL (0.5-0.9) 01/18/24 11:38 GFR Calculation 101.1 mL/min (90-130) 01/18/24 11:38 Glucose 88 mg/dL (65-115) 01/18/24 11:38 Calculated Osmolality 288 mOsm/kg (285-295) 01/18/24 11:38 Calcium 9.0 mg/dL (8.5-10.5) 01/18/24 11:38 Total Bilirubin 0.7 mg/dL (0.15-1.2) 01/18/24 11:38 AST 16 U/L (0-32) 01/18/24 11:38 ALT 16 U/L (0-33) 01/18/24 11:38 Alkaline Phosphatase 97 U/L (35-105) 01/18/24 11:38 Total Protein 7.2 g/dL (6.6-8.7) 01/18/24 11:38 Albumin 4.6 g/dL (3.5-5.2) 01/18/24 11:38 Globulin 2.6 g/dL (1.3-4.6) 01/18/24 11:38 Lipase 18 U/L (13-60) 01/18/24 11:38 HCG, Qual Negative (Negative) 01/18/24 11:38 Urine Color Yellow (Yellow) 01/18/24 11:00 Urine Appearance Clear (CLEAR) 01/18/24 11:00 Urine pH 5.0 (5-7) 01/18/24 11:00 Ur Specific [place] 1.024 (1.005-1.030) 01/18/24 11:00 Urine Protein Negative (Negative) 01/18/24 11:00 Urine Glucose (UA) Negative (Normal) 01/18/24 11:00 Urine Ketones Negative (Negative) 01/18/24 11:00 Urine Blood Negative (Negative) 01/18/24 11:00 Urine Nitrate Negative (Negative) 01/18/24 11:00 Urine Bilirubin Negative (Negative) 01/18/24 11:00 Urine Urobilinogen 1.0 mg/dL (Negative) 01/18/24 11:00 Ur Leukocyte Esterase Negative (Negative) 01/18/24 11:00 Urine RBC 0-2 /hpf (0-2) 01/18/24 11:00 Urine WBC 6-10 /hpf (0-5) 01/18/24 11:00 Ur Squamous Epith Cells 6-10 /hpf (0-5) 01/18/24 11:00 Amorphous Sediment Not Reportable 01/18/24 11:00 Urine Bacteria Trace /hpf (NONE) 01/18/24 11:00 Hyaline Casts 0.81 /lpf 01/18/24 11:00 All radiology interpretation(s) finalized by discharge Discharge Plan Discharge Patient Disposition: Home Clinical Impression: Musculoskeletal back pain Condition: Stable Prescriptions: No Action topiramate 50 mg tablet 50 mg PO DAILY Qty: 30 2RF Discharge Orders: Discharge ED (Routine); Ordered 01/18/24 Ordered By: Clotilde Cisneros Referrals: Belinda Bae NP [Primary Care Provider] - Activity Restrictions/Additional Instructions: As we discussed, I would recommend you continue to treat pain conservatively with [id number] medications such as Tylenol and Ibuprofen. You may continue to apply heat to the affected area. May return to the emergency department for worsening or uncontrollable pain, vomiting, painful urination, fevers, severe chest pain or difficulty breathing, or any other concerns you may have. Hope you begin to feel better soon. As we discussed, I would like you to follow-up with primary care in a week or so for re-evaluation if symptoms are not improving. Stand Alone Forms: Work/School Release Coding Level of Care Code ED Assistant Manager Trainee for Sangita Jacobo
[2024-01-18 10:37] VITALS: BP 150/102; PULSE 96; RESP 16; TEMP 36.8; O2SAT 100; BMI 42.0
[2024-01-18 10:43] VITALS: BP 150/102; PULSE 94; O2SAT 100
--- NOTE | 2024-01-18 10:48 | XR_ITS ---
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 No acute abno rmality in the remainder of the bony thorax. The heart is at the upper limits of normal in size Calcified granulomas disease in both hemithoraces. No acute pulmonary parenchymal or pleural abnormality is identified. XR/XR chest 1V portable [id number] IMPRESSION: Congenital spine abnormality as above. No acute chest abnormality identified.
[2024-01-18 11:09] LABS: Bilirubin Urine Negative (Negative); Blood Urine Negative (Negative); Glucose Urine UA Negative (Normal); Ketones Urine Negative (Negative); Leukocyte Esterase Urine Negative (Negative); Nitrate Urine Negative (Negative); Protein Urine Negative (Negative); Specific Gravity, Urine 1.024 (1.005-1.030); Urine Appearance Clear (CLEAR); Urine Color Yellow (Yellow)
[2024-01-18 11:14] LABS: Add Urine Microscopic? YES; Bacteria Urine Trace /hpf; Hyaline Casts Urine 0.81 /lpf; RBC Urine 0-2 /hpf (0-2)
[2024-01-18 11:58] LABS: Basophils # 0.1 10^3/uL (0.0-0.1); Basophils % 0.8 %; Eosinophils # 0.3 10^3/uL (0.0-0.8); Eosinophils % 2.4 %; Hematocrit 48.6 % (36-47); Lymphocytes # 2.1 10^3/uL (0.8-4.8); Lymphocytes % 19.3 %; Mean Corpuscular HGB Conc 32.3 g/dL (30-55); Mean Corpuscular Hemoglobin 28.4 pg (27-33); Mean Corpuscular Volume 87.9 fl (85-98); Mean Platelet Volume 9.6 fL (7.4-10.4); Monocytes # 0.9 10^3/uL (0.2-0.9); Monocytes % 8.5 %; Neutrophils # 7.36 10^3/uL (1.8-7.7); Neutrophils % 68.5 %; Nucleated Red Blood Cells % 0 %; Platelet Count 370 10^3/cmm (157-399); Red Blood Count 5.53 10^6/uL (3.85-5.65); Red Cell Distribution Width 13.6 % (12.1-15.1); White Blood Count 10.75 10^3/uL (3.29-11.43)
[2024-01-18 12:18] LABS: Alanine Aminotransferase 16 U/L (0-33); Albumin Level 4.6 g/dL (3.5-5.2); Alkaline Phosphatase 97 U/L (35-105); Anion Gap 15.1 (5-19); Aspartate Amino Transferase 16 U/L (0-32); Blood Urea Nitrogen 9 mg/dL (6-20); Carbon Dioxide 24 mmol/L (22-29); Chloride 105 mmol/L (98-107); Creatinine Clr Calc Pharmacy 138.0256; Globulin 2.6 g/dL (1.3-4.6); Glomerular Filtration Rate 101.1 mL/min (90-130); Glucose 88 mg/dL (65-115); Lipase 18 U/L (13-60); Osmolality Calculated 288 mOsm/kg (285-295); Potassium 4.1 mmol/L (3.5-5.1); Sodium 140 mmol/L (136-145); Total Bilirubin 0.7 mg/dL (0.15-1.2); Total Protein 7.2 g/dL (6.6-8.7)
[2024-01-18 12:23] LABS: HCG, Serum Qual Negative (Negative)
[2024-01-18 12:55] VITALS: BP 118/91; PULSE 79; O2SAT 99
== END 2024-01-18 12:57 | disposition home or self-care (01) ==
PROVIDERS: Emergency Provider Physician Assistant
DX: M54.9 Dorsalgia, unspecified (principal); Z72.0 Tobacco use
CPT/HCPCS: 36415; 71045; 80053; 81001; 83690; 84703; 85025; 99284

== ENCOUNTER 2024-04-13 06:41 | Day surgery (SDC) | payer MEDICAID, SELFPAY ==
[2024-04-13] VITALS (10 sets, daily range): BP systolic 114–142; BP diastolic 75–102; PULSE 65–78; RESP 10–18; TEMP 36.3–36.5; O2SAT 97–100; BMI 39.8
--- NOTE | 2024-04-13 01:34 | P.HP_ITS ---
Same Day Surgery H&P Indication for Procedure/HPI DATE OF PROCEDURE: April 13, 2024 CHIEF COMPLAINT/INDICATIONFOR SURGICAL PROCEDURE: abnormal uterine bleeding PREOP DIAGNOSIS: abnormal uterine bleeding PLANNED PROCEDURE: Operation Date: 04/13/24 08:15 Proposed Procedures p Hysteroscopy w/ Endometrial Sampling 32253, N93.9, N84.0(Not Applicable) - Salvador Sharp MD s Poylpectomy(Not Applicable) - Salvador Sharp MD 28 y.o. G0 h/o PCOS h/o infertility periods irregular, infrequent, very heavy when they occur pelvic sono done November 05, 2023 showed multiple endometrial polyps Medications/Allergies* Allergies/Adverse Reactions Allergy/AdvReac Type Severity Reaction Status Date / Time No Known Allergies Allergy Verified 01/17/24 10:45 Pertinent History/Comorbid Conditions* Medical History (Updated 01/26/24 @ 00:00 by GRISELDA Schaefer) Encounter to establish care Right foot pain Abnormal uterine bleeding (AUB) anovulatory bleeding No pertinent past medical history neghx: htn,dm,thyroid,dvt/pe PCP: None Migraines w/o aura--- gets 2-3/year that required intervention Depression Scoliosis Surgical History (Updated 02/27/22 @ 14:40 by Abi Barbosa APN, DARIAN) [place] teeth extracted S/P tonsillectomy History of surgical amputation of finger of left hand Family History (Updated 02/27/22 @ 14:47 by Abi Barbosa APN, DARIAN) Diabetes Father Grandfather maternal Brother Clotting disorder History of kidney cancer Mother Lung cancer Father Cancer Hypertension Brother Stroke Family/Other maternal uncle Denies family history of Colon cancer Ovarian cancer Heart disease Breast cancer Family history of thyroid problem Uterine cancer Hyperchloremia Social History Smoking and tobacco/nicotine status: current every day tobacco/nicotine user Alcohol intake: never Substance/Drug Use: never Adopted: No Pertinent Exam Findings alert, oriented x 3, clear to auscultation bilaterally and regular rate & rhythm Pertinent Data Pelvic sono 11-05-23 normal-sized uterus Endometrium 1.4 cm Multiple endometrial polyps, largest 2 cm Normal ovaries Recommendations Surgery/Procedure today Coding Level of Care Code Acute Code for Chg Fwd Time Spent (min) 20
[2024-04-13 07:26] LABS: HCG, Serum Qual Negative (Negative)
--- NOTE | 2024-04-13 07:38 | ANES.PREANE2 ---
Pre-Anesthetic Assessment Height/Weight: Height 1.6 m Weight 102.058 kg Temp Pulse Resp BP Pulse Ox O2 Del Method 97.3 F L 71 18 142/102 98 Room Air 04/13/24 06:50 04/13/24 06:50 04/13/24 06:50 04/13/24 06:50 04/13/24 06:50 04/13/24 06:53 Preop Diagnosis: abnormal uterine bleeding Operation Date: 04/13/24 08:15 Proposed Procedures p Hysteroscopy w/ Endometrial Sampling 90140, N93.9, N84.0(Not Applicable) - Salvador Sharp MD s Poylpectomy(Not Applicable) - Salvador Sharp MD Familial anesthetic complications: None Was Beta Mitchell taken within 24 hours: N/A Was Clonidine taken within 24 hours: N/A Last intake: Intake Last Liquid Date 04/12/24 Last Liquid Time 21:00 Last Solid Date 04/12/24 Last Solid Time 19:00 Social No alcohol and No tobacco Exam alert, oriented x 3, clear to auscultation bilaterally and regular rate & rhythm Airway Mallampati: Class II Dentition: full Metabolic Morbid Obesity PCOS Anesthetic Plan ASA status: 3 Anesthesia: General Risk of > 500 ml blood loss (7ml/kg in children): No Medications/Allergies Home Medications ?Medication ?Instructions ?Recorded ?Confirmed ?Last Taken ?Type topiramate 50 mg tablet 50 mg PO DAILY #30 tabs 12/29/23 04/12/24 04/12/24 Rx cyclobenzaprine 5 mg tablet 5 mg PO TID PRN muscle spasm #30 01/20/24 04/12/24 Unknown Rx tabs ibuprofen 800 mg tablet 800 mg PO Q6H #60 tabs 01/20/24 04/12/24 Unknown Rx Allergies Allergy/AdvReac Type Severity Reaction Status Date / Time No Known Allergies Allergy Verified 04/13/24 06:50 [facility] Anesthesia Medical History (Updated 01/26/24 @ 00:00 by GRISELDA Schaefer) Encounter to establish care Right foot pain Abnormal uterine bleeding (AUB) anovulatory bleeding No pertinent past medical history neghx: htn,dm,thyroid,dvt/pe PCP: None Migraines w/o aura--- gets 2-3/year that required intervention Depression Scoliosis Surgical History [place] teeth extracted S/P tonsillectomy History of surgical amputation of finger of left hand Family History Father Diabetes Lung cancer Grandfather Diabetes maternal Brother Hypertension Diabetes Mother History of kidney cancer Family/Other Stroke maternal uncle Other Cancer Clotting disorder Denies family history of Colon cancer Ovarian cancer Heart disease Breast cancer Family history of thyroid problem Uterine cancer Hyperchloremia Social History Smoking and tobacco/nicotine status: current every day tobacco/nicotine user Alcohol intake: never Substance/Drug Use: never Adopted: No Data Anesthesia Cardiac Studies: No Data to Display
--- NOTE | 2024-04-13 07:48 | W.PM.OPSUD ---
Surgery/Procedure H&P Update DATE OF PROCEDURE: April 13, 2024 DATE H&P PERFORMED: 04/13/24 H&P UPDATE INFORMATION: I have reviewed H&P completed within last 30 days, I have examined patient prior to procedure and No changes to prior documentation PREOP DIAGNOSIS: abnormal uterine bleeding PLANNED PROCEDURE: Operation Date: 04/13/24 08:15 Proposed Procedures p Hysteroscopy w/ Endometrial Sampling 51149, N93.9, N84.0(Not Applicable) - Salvador Sharp MD s Poylpectomy(Not Applicable) - Salvador Sharp MD
--- NOTE | 2024-04-13 09:45 | PM.OP ---
Operative Report Date of procedure: April 13, 2024 Pre-op diagnosis: abnormal uterine bleeding Post-op diagnosis: same Post-op findings: multiple endometrial polyps with varying sizes moderate endometrial tissue Normal appearing cervix Procedure done: Hysteroscopy Endometrial sampling and polypectomy with Myosure Implants: none Specimens removed/disposition: endometrial tissue Surgeon: Salvador Sharp MD Anesthesia: MAC Estimated blood loss (mL): 5 Complications: none Findings: multiple endometrial polyps with varying sizes moderate endometrial tissue Normal appearing cervix Condition: stable Disposition: PACU Brief History: 29 y.o. with abnormal uterine bleeding Procedure: Informed consent signed. Patient was taken to the operating room. Anesthesia was induced. Patient was placed in dorsolithotomy position, prepped and draped for hysteroscopy. A bivalve speculum was placed in the vagina. The cervix and vagina were normal. The anterior lip of the cervix was grasped with a sharp-toothed tenaculum. The cervix was serially dilated with Hegar dilators. The uterus was sounded to 8 cm. A hysteroscope was placed into the endometrial cavity. There were multiple endometrial polyps with varying sizes. Moderate endometrial tissue was seen. The endocervical canal was normal. The endometrial cavity was otherwise normal. A Myosure device was then inserted and the endometrial polyps were removed and sent to pathology. Endometrial sampling was also done. The endometrial cavity was seen to be intact. The hysteroscope and Myosure were then removed. Endometrial tissue was sent to pathology. The sharp-toothed tenaculum was removed. There was no bleeding from the endometrial cavity or cervix. The patient was then placed supine and awakened and taken to the PACU. Postop condition: stable EBL: none Sponge and instruments counts were normal x 2 Complications: none
--- NOTE | 2024-04-13 10:05 | ANE.PACU2 ---
Inpatient post-anesthesia follow up: Airway intact: Yes Vital signs: Temperature 97.7 F Pulse Rate 69 Respiratory Rate 18 Blood Pressure 114/81 Pulse Oximetry 98 Oxygen Delivery Me thod Room Air Oxygen Flow Rate 6 Fraction of Inspir ed Oxygen Hydration adequate: Yes Nausea and vomiting: No Pain level: 1 Mental status: Baseline
== END 2024-04-13 10:07 | disposition home or self-care (01) ==
PROVIDERS: Anesthesiology; Visit Provider Obstetrics & Gynecology
PROC: 0UJD8ZZ Inspection of Uterus and Cervix, Via Natural or Artificial Opening Endoscopic (ICD-10-PCS; CPT 58555; principal; 2024-04-13 08:05)
PROC: (CPT 58558; 2024-04-13 08:05)
DX: N84.0 Polyp of corpus uteri (principal); N93.9 Abnormal uterine and vaginal bleeding, unspecified; E28.2 Polycystic ovarian syndrome; G43.909 Migraine, unspecified, not intractable, without status migrainosus; F32.A Depression, unspecified; M41.9 Scoliosis, unspecified; F17.200 Nicotine dependence, unspecified, uncomplicated; Z79.899 Other long term (current) drug therapy
CPT/HCPCS: 58558; 36415; 84703; 88305; J1100; J1885; J2250; J2405; J2704

== ENCOUNTER → 2024-07-21 11:36 | Outpatient (BNVA) | payer MEDICAID, SELFPAY | DX: M67.51 Plica syndrome, right knee (principal) | CPT/HCPCS: 73562 ==

== ENCOUNTER 2024-12-14 19:53 | Emergency (ER) | payer SELFPAY ==
[2024-12-14 19:56] VITALS: BP 141/88; PULSE 82; TEMP 36.9; O2SAT 100; BMI 40.7
--- OUTSIDE RECORDS SUMMARY | 2024-12-14 19:57 | XMS_ITS | Clinical Summary ---
Author Organization [facility] Address [address] [place]: Epic Prelude ADT RAS [place] [address] Care Team Providers Care Medical Records Supervisor Name Role Phone Unavailable Primary Care Provider Unavailabl e Allergies No known active allergies Medications topiramate (TOPAMAX) 50 mg tablet Take 50 mg by mouth daily. Active Active Problems Problem Noted Date Diagnosed Date Knee injury, right, initial encounter 05/07/2024 Dysmenorrhea 03/13/2013 Scoliosis 03/13/2013 Overview (06/13/2020): [facility] High risk sexual behavior 03/13/2013 Overview (06/13/2020): Was living c 18 yo male prior to moving in brother and sister in law Finger avulsion, left long finger 08/17/2012 Encounters Date Type Department Care Team Description 12/13/2024 External Device Data [facility] Provider, Abstract 12/06/2024 External Device Data [facility] Provider, Abstract 11/21/2024 External Device Data [facility] Provider, Abstract 10/17/2024 External Device Data [facility] Provider, Abstract 10/04/2024 External Device Data [facility] Provider, Abstract 09/20/2024 External Device Data [facility] Provider, Abstract from Last 3 Months Immunizations Immunization Administration Dates Next Due (M-M-R II/PRIORIX)(12 MO UP) MEASLES, MUMPS AND RUBELLA VIRUS VACCINE, 0.5 ML IM/SUBCUT 06/19/1998 (VARIVAX)(12 MOS UP)VARICELL A VIRUS VACCINE (PF) 0.5 ML, SUB CUT 06/19/1998 Dt Dtp Dtap Vaccine 06/19/1998, 8,1997,1997 HIB, Unspecified Formulation 06/19/1998, 1997,1997,1997 Hepatitis B Vaccine 1997,1997,1997 IPV/OPV 06/19/1998,1997,1997 Family History Medical History Relation Name Comments Healthy Brother Cancer Father Diabetes Father Hypertension Father Lung Cancer Father Healthy Sister Relation Name Status Comments Brother Father Sister Social History Tobacco Use Types Packs/Day Years Used Date Smoking Tobacco: Every Day Cigarettes Smokeless Tobacco: Current Tobacco Cessation:Ready to Q uit: Not Asked; Counseling Given: Not Answered Alcohol Use Standard Drinks/Week Comments Yes 0 (1 standard drink = 0.6 oz pur e alcohol) Feeling Safe Answer Date Recorded Are you in a relationship wi th someone who hurts you emotionally and/or physically? 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 Gender Identity Not on file Sexual Orientation Not on file Last Filed Vital Signs Vital Sign Reading Time Taken Comments Blood Pressure 139/89 05/07/2024 3:00 PM CDT Pulse 88 05/07/2024 3:00 PM CDT Temperature 36.3 C (97.3 F) 05/07/2024 1:44 PM CDT Respiratory Rate 16 05/07/2024 3:00 PM CDT Oxygen Saturation 100% 05/07/2024 3:00 PM CDT Inhaled Oxygen Concentration - - Weight 103.8 kg (228 lb 12.8 oz) 05/07/2024 1:44 PM CDT Height 160 cm (5' 3 ) 05/07/2024 1:44 PM CDT Body Mass Index 40.53 05/07/2024 1:44 PM CDT Plan of Treatment Health Maintenance Due Date Last Done Comments DTAP/TDAP/TD VACCINES (5 - Tdap) 2008 06/19/1998, 1997, 1997, Additional history exists CERVICAL CANCER SCREENING 2018 HPV/Cotest (21-29) 2018 PAP SMEAR 2018 HPV VACCINES (1 - 3-dose SCD M series) 2024 INFLUENZA VACCINE (#1) 2024 HEPATITIS B VACCINES Completed 1997, 1997, 1997, Additional history exists [place] [address] [place] [address] PLAN MEDICAID
--- OUTSIDE RECORDS SUMMARY | 2024-12-14 19:57 | XMS_ITS | Encounter Summary ---
Author Organization [facility] Address [address] [place] [address] Care Team Providers Care Cdl Bulk Driver Name Role Phone Unavailable Primary Care Provider Unavailabl e Encounter Details Date Type Department Care Team (Late st Contact Info) Description 12/13/2024 External Device Data [facility] Provider, Abstract NO ADDRESS ON FILE Social History Tobacco Use Types Packs/Day Years Used Date Smoking Tobacco: Every Day Cigarettes Smokeless Tobacco: Current Alcohol Use Standard Drinks/Week Comments Yes 0 (1 standard drink = 0.6 oz pur e alcohol) Feeling Safe Answer Date Recorded Are you in a relationship wi th someone who hurts you emotionally and/or physically? 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
--- OUTSIDE RECORDS SUMMARY | 2024-12-14 19:57 | XMS_ITS | Encounter Summary ---
Author Organization [facility] Address 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
[2024-12-14 20:01] VITALS: BP 143/96; PULSE 88; O2SAT 100
--- NOTE | 2024-12-14 20:31 | XRR_ITS ---
PROCEDURE INFORMATION: Exam: XR Right Hand Exam date and time: 12/14/2024 8:43 PM Age: 29 years old Clinical indication: Injury or trauma; Other: Cut by piece of stovepipe; Laceration; Right; Middle finger; Additional info: Trauma and cut to 3rd finger TECHNIQUE: Imaging protocol: Radiologic exam of the right hand. Views: 1 or 2 views. COMPARISON: No relevant prior studies available. FINDINGS: Bones/joints: Normal. Soft tissues: Normal. XR/XR hand RT 2V [id number] IMPRESSION: No acute findings.
--- NOTE | 2024-12-14 20:43 | ED_ITS ---
HPI - Wound/Laceration General: Chief Complaint: Wound/Laceration Stated Complaint: lac on finger, still bleading Time Seen by Provider: 12/14/24 20:00 History of Present Illness: Patient is a 29-year-old female with no past medical history who presents to the ED with a right third finger laceration. Was installing new kitchen equipment when part of the pipe came off and hit her causing a small cut to the dorsal side of her third finger, had a moderate amount of bleeding that controlled with pressure. No loss of motor function, no other injury. Does not recall her last tetanus. Related Data Previous Rx's ?Medication ?Instructions ?Recorded diclofenac sodium 1 % topical gel 4 g topical QID #100 grams 06/14/24 (Voltaren Arthritis Pain) norethindrone acetate 5 mg tablet 5 mg PO DAILY #90 ta bs 08/23/24 azithromycin 250 mg tablet See Rx Instructions PO .COM PLEX #6 11/06/24 tabs Allergies Allergy/AdvReac Type Severity Reaction Status Date / Time No Known Allergies Allergy Verified 12/14/24 20:01 Review of Systems General: Reports: 10 or more systems reviewed and unremarkable except in HPI and below Skin/Breast: Reports: erythema and skin pain PFSH ED PFSH: Medical History (Updated 12/14/24 @ 22:46 by Dayron Milian DO) Encounter to establish care Right foot pain Abnormal uterine bleeding (AUB) anovulatory bleeding No pertinent past medical history neghx: htn,dm,thyroid,dvt/pe PCP: None Migraines w/o aura--- gets 2-3/year that required intervention Depression Scoliosis Surgical History (Updated 11/07/24 @ 13:15 by Belinda Bae NP) History of hysteroscopy [place] teeth extracted S/P tonsillectomy History of surgical amputation of finger of left hand Family History Father Diabetes Lung cancer Grandfather Diabetes maternal Brother Hypertension Diabetes Mother History of kidney cancer Family/Other Stroke maternal uncle Other Cancer Clotting disorder Denies family history of Colon cancer Ovarian cancer Heart disease Breast cancer Family history of thyroid problem Uterine cancer Hyperchloremia Social History Smoking and tobacco/nicotine status: current every day tobacco/nicotine user Alcohol intake: never Substance/Drug Use: never Adopted: No Physical Exam Narrative: EXAM NARRATIVE: Well-appearing, vital stable on arrival, no signs of hemorrhagic shock, no acute distress. Right third finger with isolated 3 cm superficial laceration with mild amount of dried blood surrounding, no significant swelling or bruising, 5 out of 5 motor and sensation to all digits of hand and wrist, 2+ radial pulse. Procedures Laceration Laceration 1: Site: hand Side (If applicable): right Size (cm): 3 Description: linear Depth: simple, single layer Local Anesthetic: lidocaine 1% Amount of anesthesia used (mL): 2 Pre-repair: irrigated extensively Skin layer closed with: vicryl Size (cm): 4-0 Number of sutures: 1 Technique: simple, interrupted Course Vital Signs: Vital signs: Vital Signs Temperature 98.4 F 12/14/24 19:56 Pulse Rate 88 12/14/24 20:01 Blood Pressure 143/96 12/14/24 20:01 Pulse Oximetry 100 12/14/24 20:01 Oxygen Delivery Me thod Room Air 12/14/24 20:01 MDM - Wound/Laceration Medical Decision Making -ddx: Soft tissue injury, fracture, dislocation, foreign body - Patient overall well-appearing, with minor isolated trauma, will update tetanus since does not recall her last 1 and was a piece of kitchen equipment. Mild amount of bleeding that was controlled within a few minutes, nothing arterial seen on exam today. Denies needing pain medication at this time, we will get x-ray to look for fracture or dislocation, plan to put in 1 stitch for good hemostasis since nearby joint and high tension load area. - X-ray negative for any fracture, dislocation, retained foreign body. Tetanus was updated. Wound closed with 1 Vicryl repeat suture and repeat MSK and neurovascular exam unchanged and patient discharged in stable condition and supportive care recommendations for wound healing given. Lab Data Radiology Impressions Hand X-Ray 12/14/24 20:31 IMPRESSION: No acute findings. All radiology interpretation(s) finalized by discharge Discharge Plan Discharge Patient Disposition: Home Clinical Impression: Finger laceration Condition: Stable Prescriptions: No Action norethindrone acetate 5 mg tablet 5 mg PO DAILY Qty: 90 2RF Rx Instructions: take once daily diclofenac sodium [Voltaren Arthritis Pain] 1 % gel 4 g topical QID Qty: 100 0RF Rx Instructions: apply to right knee azithromycin 250 mg tablet See Rx Instructions PO .COMPLEX Qty: 6 0RF Rx Instructions: For 250 mg dose pack: take 500 mg today (day 1), then 250 mg for 4 days (days 2-5) PO Discharge Orders: Discharge ED (Routine); Ordered 12/14/24 Ordered By: Dayron Milian Referrals: Belinda Bae, UNDERWEAR FINISHER [Primary Care Provider, Family Practice] Discharge Activity: Resume usual activity Patient Instructions: Opioid Safety, Pain Management, Patient Portal & Frank Instructions Activity Restrictions/Additional Instructions: You were seen for the cut to your hand, your evaluated with an x-ray which showed no traumatic injury or foreign bodies, your wound was repaired with 1 suture, this is dissolving and should go away on its own in 7 to 10 days. Keep the area clean and ensure you stretch your finger so it does not get too stiff. Use ice packs 20 minutes at a time to help with the swelling. Otherwise you can go about your normal activity. Return to the ED with severe worsening of the pain or swelling of the site, severe bleeding, inability to move or feel your finger, or any other emergent concerns. Print Language: Ukrainian Coding Level of Care Code ED Glass Rolling Machine Operator for Sangita Jacobo
[2024-12-14] MEDS: tetanus-dipt-pertussis 0.5 mL SDV IM (21:02)
[2024-12-14 22:54] VITALS: BP 127/89; PULSE 82; O2SAT 98
== END 2024-12-14 22:55 | disposition home or self-care (01) ==
PROVIDERS: Emergency Provider Student in an Organized Health Care Education/Training Program
DX: S61.212A Laceration without foreign body of right middle finger without damage to nail, initial encounter (principal); W22.8XXA Striking against or struck by other objects, initial encounter; Z72.0 Tobacco use
CPT/HCPCS: 12002; 73120; 90471; 90715; 96372; 99283; J9999